=== PATIENT | male | born 1960 | race Caucasian/White ===

== ENCOUNTER 2019-11-21 14:09 | Emergency (ER) | payer OTHER, MEDICAID, SELFPAY ==
[2019-11-21] VITALS (7 sets, daily range): BP systolic 149–154; BP diastolic 67–100; PULSE 64–107; RESP 13–20; TEMP 36.9; O2SAT 99–100
[2019-11-21 14:37] LABS: Add Manual Diff / Slide Review NO; Basophils Absolute Auto 0 /uL (0-100); Basophils Percent Auto 0.5 % (0-2); Eosinophils Absolute Auto 0 /uL (0-450); Eosinophils Percent Auto 0.5 % (2-4); Hematocrit 42.3 % (41-53); Hemoglobin 14.4 g/dL (13.5-17.5); Lymphocytes Absolute Auto 1500 /uL (1100-4500); Lymphocytes Percent Auto 18.1 % (25-40); Mean Corpuscular Hemoglobin 30.4 PG (26-34); Mean Corpuscular Volume 89.5 fL (80-100); Monocytes Absolute Auto 600 /uL (0-900); Monocytes Percent Auto 7.4 % (3-14); Neutrophils Absolute Auto 6000 /uL (1500-7000); Neutrophils Percent Auto 73.5 % (50-75); Platelet Count 246 X10^3/uL (150-400); Red Blood Cell Count 4.72 X10^6/uL (4.5-5.9); Red Cell Distribution Width 13.9 % (11.6-14.8); White Blood Cell Count 8.2 X10^3/uL (4.5-11.0)
[2019-11-21 14:44] LABS: INR 0.9 (0.9-1.3); Prothrombin Time 10.6 SECONDS (10.1-12.7)
[2019-11-21 14:47] LABS: PTT Partial Thromboplastin Tim 30 SECONDS (26.4-36.2)
[2019-11-21 14:48] LABS: Alanine Aminotransferase 23 IU/L (<50); Albumin 4.3 g/dL (3.5-5.0); Albumin Globulin Ratio 1.3 (1.0-2.8); Alkaline Phosphatase 69 U/L (38-126); Aspartate Aminotransferase 27 IU/L (17-59); BUN Creatinine Ratio 23.5 (6-22); Bilirubin Total 0.6 mg/dL (0.2-1.3); Blood Urea Nitrogen 23 mg/dL (9-20); Calcium 9.6 mg/dL (8.4-10.2); Carbon Dioxide 29 mmol/L (22-32); Chloride 104 mmol/L (98-107); Estimated Glomerular Filt Rate > 60.0 mL/min (>60); Globulin 3.2 g/dL (1.7-4.1); Glucose 95 mg/dL (80-110); HEMOLYSIS < 15 (0-50); Lipase 96 U/L (23-300); Potassium 3.9 mmol/L (3.4-5.1); Sodium 139 mmol/L (137-145); Total Protein 7.5 g/dL (6.3-8.2)
[2019-11-21 14:54] LABS: Creatine Kinase 91 U/L (55-170)
[2019-11-21 15:07] LABS: Troponin I < 0.012 ng/mL (0.01-0.034)
--- NOTE | 2019-11-21 15:23 | DI.CT.S_ITS ---
PROCEDURE: CT ABDOMEN PELVIS W CON INDICATIONS: llq pain TECHNIQUE: After the administration of intravenous contrast, 5 mm thick sections acquired from the diaphragm to the symphysis. 5 mm coronal and sagittal reformats were acquired. For radiation dose reduction, the following was used: automated exposure control, adjustment of mA and/or kV according to patient size. COMPARISON: None. FINDINGS: Image quality: Excellent. ABDOMEN: Lung bases: Lung bases are clear. Heart size is normal. Solid organs: Liver is normal in size and enhancement. Gallbladder appears normal. Biliary system is non dilated. Pancreas enhances normally. Spleen is normal in size and enhancement. No adrenal nodules. Kidneys demonstrate normal size and enhancement, without hydronephrosis. Peritoneum and bowel: Bowel loops demonstrate normal wall thickness and caliber. No free fluid or air. Nodes and vessels: No retroperitoneal or mesenteric adenopathy by size criteria. Aorta and inferior vena cava are normal in size. Miscellaneous: No ventral hernias. PELVIS: Genitourinary: Bladder wall thickness is normal. Miscellaneous: No inguinal hernias or adenopathy. At the left inguinal canal internal os the morphology is suggestive of prior herniorrhaphy. Bones: No suspicious bony lesions. No vertebral body compression fractures. IMPRESSION: Please correlate clinically for whether prior herniorrhaphy has been performed at the internal os of the left inguinal canal. No diverticulitis is found, no free fluid is identified. A definite source of current new left lower quadrant pain is not identified. The clinical history indicates possible upper abdominal pain also. No acute disease in the upper abdomen is found. Dictated by: Westley Rincon M.D. on 11/21/2019 at 16:29 Approved by: Westley Rincon M.D. on 11/21/2019 at 16:31
--- NOTE | 2019-11-21 16:32 | ED.ABDPAIN ---
HPI - Abdominal Pain <NINA Sanchez-BC - Last Filed: 11/21/19 18:48> General Chief Complaint: Abdominal Pain Stated Complaint: feels like something is broke in stomach Time Seen by Provider: 11/21/19 14:13 Source: patient Mode of arrival: Ambulatory Limitations: no limitations History of Present Illness HPI narrative: The patient is a 59-year-old male current smoker with history rib fracture presents with a chief complaint of I think I broke something in my stomach.He states that he has a known left inguinal hernia but was driving a needle through a piece of tarp and felt a pop in his left lower abdomen. He denies any fevers nausea vomiting or diarrhea. He states that he had hernia that was hard earlier, but it got better after a felt a pop. He denies any pertinent medical history of abdominal surgeries or cardiac disease. He has not taken anything to feel better. This happened approximately 20 minutes prior to arrival. The patient states that he has had a left inguinal hernia for approximately 4 years, he states ?I was supposed to follow-up on it, but I did not. Related Data Home Medications Medication Instructions Recorded Confirmed [ALEVE] PRN #0 09/05/07 Bupropion Hydrochloride 300 mg PO Q DAY #0 05/18/10 (WELLBUTRIN) [AMBIEN] #0 05/19/10 Previous Rx's Medication Instructions Recorded ciprofloxacin HCl [Cipro] 500 mg PO BID #20 tab 10/16/15 hydrocodone-acetaminophen 0 tab PO Q6HP PRN #15 tab 10/16/15 oxycodone-acetaminophen [Percocet] 1 tab PO Q4HP PRN #15 tab 11/24/15 albuterol sulfate [Ventolin HFA] 0 puff INH Q4HP PRN #1 ea 04/24/16 doxycycline hyclate 100 mg PO BID #14 tab 04/24/16 Allergies Allergy/AdvReac Type Severity Reaction Status Date / Time No Known Drug Allergies Allergy Verified 11/21/19 14:13 Review of Systems <MAYRA Sanchez - Last Filed: 11/21/19 18:48> Review of Systems Narrative: GENERAL: Denies chills, fatigue, malaise, fever, sweats. HEENT: Denies sinus pain, ear pain, sore throat, difficulty swallowing, dizziness. RESPIRATORY: Denies dyspnea, cough, wheezing, hemoptysis, sputum. CARDIOVASCULAR: Denies chest pain, palpitations, orthopnea, edema, GASTROINTESTINAL: See HPI : Denies dysuria, frequency, incontinence, hematuria, urinary retention. MUSCULOSKELETAL: denies weakness, joint pain, or bony pain SKIN: Denies rash, skin lesions, or other NEUROLOGIC: Denies weakness, headache, numbness, change in speech, confusion, seizures, incoordination. PSYCHIATRIC: No concerning psychosocial issues. 12 point review of systems is negative except for those stated above Exam <NINA Sanchez-BC - Last Filed: 11/21/19 18:48> Narrative Exam Narrative: GENERAL: This is a well-nourished, well-developed patient, no acute distress HEAD: Atraumatic. Normocephalic. No temporal or scalp tenderness. EYES: Pupils equal round and reactive. Extraocular motions intact. No scleral icterus. No injection or drainage. ENT: Nose without bleeding, purulent drainage or septal hematoma. Throat without erythema, tonsillar hypertrophy or exudate. Uvula midline. Airway patent. NECK: Trachea midline. No JVD or lymphadenopathy. Supple, nontender, no meningeal signs. CARDIOVASCULAR: Regular rate and rhythm RESPIRATORY: Clear to auscultation. Breath sounds equal bilaterally. No wheezes, rales, or rhonchi. No cough. No increased respiratory effort. No accessory muscle use. GASTROINTESTINAL: Abdomen soft, non-tender, nondistended. No hepato-splenomegaly, or palpable masses. No guarding. Active bowel sounds all 4 quadrants. Left inguinal area soft palpation no obvious hernia,, exam with Carlie RN at bedside EXTREMITIES: No clubbing, cyanosis, or edema. No joint tenderness, effusion, or edema noted. BACK: Nontender without deformity or crepitance. No flank tenderness. NEURO: AOx3. SKIN: No rash or erythema on visible skin Initial Vital Signs Initial Vital Signs: Vital Signs Temperature 98.5 F 11/21/19 14:13 Pulse Rate 107 H 11/21/19 14:13 Respiratory Rate 18 11/21/19 14:13 Blood Pressure 149/100 H 11/21/19 14:13 Pulse Oximetry 100 11/21/19 14:13 <Tammy Murray DO - Last Filed: 11/26/19 07:24> Initial Vital Signs Initial Vital Signs: Vital Signs Temperature 98.5 F 11/21/19 14:13 Pulse Rate 107 H 11/21/19 14:13 Respiratory Rate 18 11/21/19 14:13 Blood Pressure 149/100 H 11/21/19 14:13 Pulse Oximetry 100 11/21/19 14:13 Scores <SYD Sanchez - Last Filed: 11/21/19 18:48> GCS [place] coma scale eye opening: Spontaneous Deshawn coma scale verbal response: Orientated [place] coma scale motor response: Obey commands Deshawn coma scale total score: 15 Course <SYD Sanchez - Last Filed: 11/21/19 18:48> Orders Ordered: ED Orders 11/21/19 14:30 Complete Blood Count AUTO DIFF Stat Comprehensive Metabolic Panel Stat Lipase Stat Partial Thromboplastin Time Stat Prothrombin Time INR Stat Troponin & CK Cardiac Panel Stat 11/21/19 14:32 EKG-12 Lead Stat 11/21/19 15:23 CT abdomen pelvis w con Stat Vital Signs Vital signs: Vital Signs - 8 hr 11/21/19 14:13 11/21/19 14:34 11/21/19 15:00 Temperature 98.5 F Pulse Rate 107 H 92 H 83 Respiratory Rate 18 14 Blood Pressure 149/100 H Pulse Oximetry 100 99 100 11/21/19 16:00 11/21/19 16:30 11/21/19 17:00 Temperature Pulse Rate 64 71 85 Respiratory Rate 14 20 18 Blood Pressure Pulse Oximetry 99 100 100 11/21/19 17:32 Temperature Pulse Rate 71 Respiratory Rate 13 Blood Pressure 150/97 H Pulse Oximetry 100 <Tammy Murray DO - Last Filed: 11/26/19 07:24> Orders Ordered: ED Orders 11/21/19 14:30 Complete Blood Count AUTO DIFF Stat Comprehensive Metabolic Panel Stat Lipase Stat Partial Thromboplastin Time Stat Prothrombin Time INR Stat Troponin & CK Cardiac Panel Stat 11/21/19 14:32 EKG-12 Lead Stat 11/21/19 15:23 CT abdomen pelvis w con Stat Vital Signs Vital signs: Vital Signs - 8 hr 11/21/19 14:13 11/21/19 14:34 11/21/19 15:00 Temperature 98.5 F Pulse Rate 107 H 92 H 83 Respiratory Rate 18 14 Blood Pressure 149/100 H Pulse Oximetry 100 99 100 11/21/19 16:00 11/21/19 16:30 11/21/19 17:00 Temperature Pulse Rate 64 71 85 Respiratory Rate 14 20 18 Blood Pressure Pulse Oximetry 99 100 100 11/21/19 17:32 Temperature Pulse Rate 71 Respiratory Rate 13 Blood Pressure 150/97 H Pulse Oximetry 100 MDM - Abdominal Pain <Miriam Whitfield, [employer]OR- - Last Filed: 11/21/19 18:48> Lab Data Result diagrams: 11/21/19 14:30 11/21/19 14:30 Labs: Lab Results 11/21/19 11/21/19 11/21/19 Range/Units 14:30 14:30 14:30 WBC 8.2 (4.5-11.0) X10^3/uL RBC 4.72 (4.5-5.9) X10^6/uL Hgb 14.4 (13.5-17.5) g/dL Hct 42.3 (41-53) % MCV 89.5 (80-100) fL MCH 30.4 (26-34) PG MCHC 34.0 (30-36) % RDW 13.9 (11.6-14.8) % Plt Count 246 (150-400) X10^3/uL Neut % (Auto) 73.5 (50-75) % Lymph % (Auto) 18.1 L (25-40) % Wilkinson % (Auto) 7.4 (3-14) % Eos % (Auto) 0.5 L (2-4) % Baso % (Auto) 0.5 (0-2) % Neut # (Auto) 6000 (4093-9747) /uL Lymph # (Auto) 1500 (0568-6465) /uL Wilkinson # (Auto) 600 (0-900) /uL Eos # (Auto) 0 (0-450) /uL Baso # (Auto) 0 (0-100) /uL PT 10.6 (10.1-12.7) SECONDS INR 0.9 (0.9-1.3) APTT 30 (26.4-36.2) SECONDS Sodium 139 (137-145) mmol/L Potassium 3.9 (3.4-5.1) mmol/L Chloride 104 (98-107) mmol/L Carbon Dioxide 29 (22-32) mmol/L BUN 23 H (9-20) mg/dL Creatinine 0.98 (0.66-1.25) mg/dL Estimated GFR > 60.0 (>60) mL/min BUN/Creatinine Ratio 23.5 H (6-22) Glucose 95 (80-110) mg/dL Calcium 9.6 (8.4-10.2) mg/dL Total Bilirubin 0.6 (0.2-1.3) mg/dL AST 27 (17-59) IU/L ALT 23 (<50) IU/L Alkaline Phosphatase 69 (38-126) U/L Total Creatine Kinase (55-170) U/L CK-MB (CK-2) CK-MB (CK-2) Rel Index Troponin I (0.01-0.034) ng/mL Total Protein 7.5 (6.3-8.2) g/dL Albumin 4.3 (3.5-5.0) g/dL Globulin 3.2 (1.7-4.1) g/dL Albumin/Globulin Ratio 1.3 (1.0-2.8) Lipase 96 (23-300) U/L 11/21/19 Range/Units 14:30 WBC (4.5-11.0) X10^3/uL RBC (4.5-5.9) X10^6/uL Hgb (13.5-17.5) g/dL Hct (41-53) % MCV (80-100) fL MCH (26-34) PG MCHC (30-36) % RDW (11.6-14.8) % Plt Count (150-400) X10^3/uL Neut % (Auto) (50-75) % Lymph % (Auto) (25-40) % Wilkinson % (Auto) (3-14) % Eos % (Auto) (2-4) % Baso % (Auto) (0-2) % Neut # (Auto) (9541-4130) /uL Lymph # (Auto) (8351-6670) /uL Wilkinson # (Auto) (0-900) /uL Eos # (Auto) (0-450) /uL Baso # (Auto) (0-100) /uL PT (10.1-12.7) SECONDS INR (0.9-1.3) APTT (26.4-36.2) SECONDS Sodium (137-145) mmol/L Potassium (3.4-5.1) mmol/L Chloride (98-107) mmol/L Carbon Dioxide (22-32) mmol/L BUN (9-20) mg/dL Creatinine (0.66-1.25) mg/dL Estimated GFR (>60) mL/min BUN/Creatinine Ratio (6-22) Glucose (80-110) mg/dL Calcium (8.4-10.2) mg/dL Total Bilirubin (0.2-1.3) mg/dL AST (17-59) IU/L ALT (<50) IU/L Alkaline Phosphatase (38-126) U/L Total Creatine Kinase 91 (55-170) U/L CK-MB (CK-2) TNP CK-MB (CK-2) Rel Index TNP Troponin I < 0.012 (0.01-0.034) ng/mL Total Protein (6.3-8.2) g/dL Albumin (3.5-5.0) g/dL Globulin (1.7-4.1) g/dL Albumin/Globulin Ratio (1.0-2.8) Lipase (23-300) U/L Point of care testing: Urine Dip Bedside Urine Glucose Negative Bedside Urine Bilirubin - Negative Bedside Urine Ketone - Negative Urine Specific [place] 1.010 Bedside Urine Occult Blood - Negative Bedside Urine pH 7.0 Bedside Urine Protein +/- 15 Bedside Urine Urobilinogen +/- 1mg Bedside Urine Nitrite - Negative Bedside Urine Leukocytes - Negative Esterase Imaging Data CT scan - abdomen/pelvis: Radiologist's Impression: [place] [address] CT Scan Report Signed Patient: Shahab Conley GMR#: [id number] : 9Acct:[id number] Age/Sex: 59 / MDate of Service: 11/21/19 Loc: ED Accession Number: [id number] Procedure: CT abdomen pelvis w con Ordering Provider: Miriam Whitfield [employer]- PROCEDURE: CT ABDOMEN PELVIS W CON INDICATIONS: llq pain TECHNIQUE: After the administration of intravenous contrast, 5 mm thick sections acquired from the diaphragm to the symphysis. 5 mm coronal and sagittal reformats were acquired. For radiation dose reduction, the following was used: automated exposure control, adjustment of mA and/or kV according to patient size. COMPARISON: None. FINDINGS: Image quality: Excellent. ABDOMEN: Lung bases: Lung bases are clear. Heart size is normal. Solid organs: Liver is normal in size and enhancement. Gallbladder appears normal. Biliary system is non dilated. Pancreas enhances normally. Spleen is normal in size and enhancement. No adrenal nodules. Kidneys demonstrate normal size and enhancement, without hydronephrosis. Peritoneum and bowel: Bowel loops demonstrate normal wall thickness and caliber. No free fluid or air. Nodes and vessels: No retroperitoneal or mesenteric adenopathy by size criteria. Aorta and inferior vena cava are normal in size. Miscellaneous: No ventral hernias. PELVIS: Genitourinary: Bladder wall thickness is normal. Miscellaneous: No inguinal hernias or adenopathy. At the left inguinal canal internal os the morphology is suggestive of prior herniorrhaphy. Bones: No suspicious bony lesions. No vertebral body compression fractures. IMPRESSION: Please correlate clinically for whether prior herniorrhaphy has been performed at the internal os of the left inguinal canal. No diverticulitis is found, no free fluid is identified. A definite source of current new left lower quadrant pain is not identified. The clinical history indicates possible upper abdominal pain also. No acute disease in the upper abdomen is found. Dictated by: Westley Rincon M.D. on 11/21/2019 at 16:29 Approved by: Westley Rnicon M.D. on 11/21/2019 at 16:31 ECG Data Attestation: I personally reviewed and interpreted this ECG as follows: Interpretation: Sinus rhythm. Ventricular 84. P.r. interval 152. QRS 90. Viewed by Dr. Terri MOYA Narrative Medical decision making narrative: The patient is a 59-year-old male who presents with a chief complaint of sudden onset popping sensation in his left lower quadrant in the area of his hernia. His lab work is grossly normal, negative troponin, denies any chest pain or shortness of breath. He is afebrile, hemodynamically stable throughout his stay in the emergency department. CT was taken to help evaluate for any potential incarceration, perforation, rupture etcetera came back negative. The patient feels much improved throughout his stay in the emergency department and denies any pain upon discharge. I discussed at length importance of following up with primary care provider in the next few days as well as coming back to the emergency department for any acute concerns such as inability keep down fluids etcetera. Patient has no questions or concerns upon discharge and states understanding of return precautions as well as follow-up care. <Tammy Murray, - Last Filed: 11/26/19 07:24> Lab Data Labs: Lab Results 11/21/19 11/21/19 11/21/19 Range/Units 14:30 14:30 14:30 WBC 8.2 (4.5-11.0) X10^3/uL RBC 4.72 (4.5-5.9) X10^6/uL Hgb 14.4 (13.5-17.5) g/dL Hct 42.3 (41-53) % MCV 89.5 (80-100) fL MCH 30.4 (26-34) PG MCHC 34.0 (30-36) % RDW 13.9 (11.6-14.8) % Plt Count 246 (150-400) X10^3/uL Neut % (Auto) 73.5 (50-75) % Lymph % (Auto) 18.1 L (25-40) % Wilkinson % (Auto) 7.4 (3-14) % Eos % (Auto) 0.5 L (2-4) % Baso % (Auto) 0.5 (0-2) % Neut # (Auto) 6000 (2418-0329) /uL Lymph # (Auto) 1500 (1674-6004) /uL Wilkinson # (Auto) 600 (0-900) /uL Eos # (Auto) 0 (0-450) /uL Baso # (Auto) 0 (0-100) /uL PT 10.6 (10.1-12.7) SECONDS INR 0.9 (0.9-1.3) APTT 30 (26.4-36.2) SECONDS Sodium 139 (137-145) mmol/L Potassium 3.9 (3.4-5.1) mmol/L Chloride 104 (98-107) mmol/L Carbon Dioxide 29 (22-32) mmol/L BUN 23 H (9-20) mg/dL Creatinine 0.98 (0.66-1.25) mg/dL Estimated GFR > 60.0 (>60) mL/min BUN/Creatinine Ratio 23.5 H (6-22) Glucose 95 (80-110) mg/dL Calcium 9.6 (8.4-10.2) mg/dL Total Bilirubin 0.6 (0.2-1.3) mg/dL AST 27 (17-59) IU/L ALT 23 (<50) IU/L Alkaline Phosphatase 69 (38-126) U/L Total Creatine Kinase (55-170) U/L CK-MB (CK-2) CK-MB (CK-2) Rel Index Troponin I (0.01-0.034) ng/mL Total Protein 7.5 (6.3-8.2) g/dL Albumin 4.3 (3.5-5.0) g/dL Globulin 3.2 (1.7-4.1) g/dL Albumin/Globulin Ratio 1.3 (1.0-2.8) Lipase 96 (23-300) U/L // Range/Units 14:30 WBC (4.5-11.0) X10^3/uL RBC (4.5-5.9) X10^6/uL Hgb (13.5-17.5) g/dL Hct (41-53) % MCV (80-100) fL MCH (26-34) PG MCHC (30-36) % RDW (11.6-14.8) % Plt Count (150-400) X10^3/uL Neut % (Auto) (50-75) % Lymph % (Auto) (25-40) % Wilkinson % (Auto) (3-14) % Eos % (Auto) (2-4) % Baso % (Auto) (0-2) % Neut # (Auto) (5442-7922) /uL Lymph # (Auto) (7546-9956) /uL Wilkinson # (Auto) (0-900) /uL Eos # (Auto) (0-450) /uL Baso # (Auto) (0-100) /uL PT (10.1-12.7) SECONDS INR (0.9-1.3) APTT (26.4-36.2) SECONDS Sodium (137-145) mmol/L Potassium (3.4-5.1) mmol/L Chloride (98-107) mmol/L Carbon Dioxide (22-32) mmol/L BUN (9-20) mg/dL Creatinine (0.66-1.25) mg/dL Estimated GFR (>60) mL/min BUN/Creatinine Ratio (6-22) Glucose (80-110) mg/dL Calcium (8.4-10.2) mg/dL Total Bilirubin (0.2-1.3) mg/dL AST (17-59) IU/L ALT (<50) IU/L Alkaline Phosphatase (38-126) U/L Total Creatine Kinase 91 (55-170) U/L CK-MB (CK-2) TNP CK-MB (CK-2) Rel Index TNP Troponin I < 0.012 (0.01-0.034) ng/mL Total Protein (6.3-8.2) g/dL Albumin (3.5-5.0) g/dL Globulin (1.7-4.1) g/dL Albumin/Globulin Ratio (1.0-2.8) Lipase (23-300) U/L Point of care testing: Urine Dip Bedside Urine Glucose Negative Bedside Urine Bilirubin - Negative Bedside Urine Ketone - Negative Urine Specific [place] 1.010 Bedside Urine Occult Blood - Negative Bedside Urine pH 7.0 Bedside Urine Protein +/- 15 Bedside Urine Urobilinogen +/- 1mg Bedside Urine Nitrite - Negative Bedside Urine Leukocytes - Negative Esterase Discharge Plan Departure Patient Disposition: Home Clinical Impression: Abdominal pain Qualifiers: Abdominal location: left lower quadrant Qualified Code(s): R10.32 - Left lower quadrant pain Inguinal hernia Qualifiers: Obstruction and gangrene presence: without obstruction or gangrene Laterality: unilateral Recurrence: not specified as recurrent Qualified Code(s): K40.90 - Unilateral inguinal hernia, without obstruction or gangrene, not specified as recurrent Discharge Date/Time: 11/21/19 17:40 Instructions: DI for Groin Hernia, DI for Abdominal Pain-Adult Activity Restrictions/Additional Instructions: Thank you for trusting us with your care today. As discussed, your lab work and imaging came back well with no acute findings. Please come back to the emergency department for any acute concerns such as severe sudden abdominal pain, abdominal pain with fever etcetera as well as inability keep down fluids Please follow-up with primary care provider in the next 24-48 hours. Please come back to the emergency department for any acute concerns. I suggest rest, ice packs [id number] medications as needed and able Prescriptions: No Action [ALEVE] PRN Qty: 0 RF: 0 Bupropion Hydrochloride (WELLBUTRIN) 300 mg PO Q DAY Qty: 0 RF: 0 [AMBIEN] Qty: 0 RF: 0 hydrocodone-acetaminophen 5 MG/325 MG tablet 0 tab PO Q6HP PRNQty: 15 RF: 0 ciprofloxacin HCl [Cipro] 500 MG tablet 500 mg PO BID Qty: 20 RF: 0 oxycodone-acetaminophen [Percocet] 5 MG/325 MG tablet 1 tab PO Q4HP PRNQty: 15 RF: 0 albuterol sulfate [Ventolin HFA] 90 MCG/PUFF HFA aerosol inhaler 0 puff INH Q4HP PRNQty: 1 RF: 0 doxycycline hyclate 100 MG tablet 100 mg PO BID Qty: 14 RF: 0 Referrals: Jose Conteh MD [Primary Care Provider] - <Tammy Murray DO - Last Filed: 11/26/19 07:24> Cosign ED Attending Cosjesusature Attestation: I was immediately available in the department for consultation. Documentation has been reviewed. I agree with assessment and plan.
== END 2019-11-21 17:40 | disposition home or self-care (01) ==
PROVIDERS: Emergency Medicine; Emergency Provider Nurse Practitioner Family; Family Provider Family Medicine; PCP Family Medicine
DX: R10.32 Left lower quadrant pain (principal); K40.90 Unilateral inguinal hernia, without obstruction or gangrene, not specified as recurrent
CPT/HCPCS: 36415; 74177; 80053; 81003; 82550; 83690; 84484; 85025; 85610; 85730; 93005; 99283; 99284; Q9967

== ENCOUNTER 2022-04-10 16:36 | Emergency (ER) | payer OTHER, MEDICAID, SELFPAY ==
[2022-04-10 17:14] VITALS: BP 138/102; PULSE 101; RESP 22; TEMP 36.9; O2SAT 97
--- NOTE | 2022-04-10 17:14 | DI.RAD.S_ITS ---
PROCEDURE: XR HAND LT MIN 3V INDICATIONS: nail in his hand TECHNIQUE: 3 views of the hand(s) acquired. COMPARISON: None. FINDINGS: Bones: No fractures or dislocations. Carpal bones are normally aligned. No suspicious bony lesions. Age-appropriate bony degenerative changes are seen. Soft tissues: There is a 3.7 cm nail fragment seen adjacent to the 4th metacarpophalangeal joint. Associated soft tissue gas can be seen. An additional metallic foreign body can be seen adjacent to the 1st metacarpophalangeal joint measuring 3-4 mm. IMPRESSION: Now fragment seen adjacent to the 4th metacarpophalangeal joint, with associated soft tissue gas. No definite bony involvement can be seen. Dictated by: Valentin Murray M.D. on 04/10/2022 at 16:41 Approved by: Valentin Murray M.D. on 04/10/2022 at 16:43
[2022-04-10] MEDS: TET,DIPH,PERTUSS(ACELL),VAC/PF 0.5 ML SYRINGE IM (17:41)
[2022-04-10] MEDS: KETOROLAC 30 MG/ML VIAL 15 MG IM (17:43)
[2022-04-10] MEDS: LIDOCAINE 2% INJ SDV 5ML 5 ML INJ (17:44)
--- NOTE | 2022-04-10 17:50 | PC.NURSE ---
Pt has ernesto nail in soft tissue of the palm of his hand, insertion and exit site on palm of hand.
[2022-04-10] MEDS: DOXYCYCLINE HYCLATE 100 MG TABLET PO (18:01)
[2022-04-10] MEDS: HYDROCODONE/ACET 5/325 TABLET 1 TAB PO (18:01)
[2022-04-10] MEDS: BACITRACIN OINT 0.9 GM PCKT 1 APPLIC TOP (18:02)
--- NOTE | 2022-04-10 18:22 | ED_ITS ---
HPI - Skin/Abscess/Foreign Bdy <Jennifer Melara, [facility] - Last Filed: 04/10/22 18:30> General Chief complaint: Skin/Abscess/Foreign Body Stated complaint: Nail through hand Time Seen by Provider: 04/10/22 17:31 Source: patient Mode of arrival: Family Vehicle Limitations: no limitations History of Present Illness HPI narrative: 61-year-old male presents to the emergency department with a broken nail in the palm of his left hand occurred just prior to arrival. He states that it was stuck in a piece of wood and pierced through his hand, he states that he had a drag the 2 x 4 with the nail through his hand to his truck to cut it off of the wood. He was unable to pull the nail through his skin so he came to have this done here. He does not know when his last tetanus vaccination was. He denies any allergies to medications, denies any sensation changes. Denies any known medical condition. Denies any other injuries. Related Data Home Medications Medication Instructions Recorded Confirmed [ALEVE] PRN ##0 09/05/07 Bupropion Hydrochloride 300 mg PO Q DAY ##0 05/18/10 (WELLBUTRIN) [AMBIEN] ##0 05/19/10 Previous Rx's Medication Instructions Recorded ciprofloxacin HCl 500 mg tablet 500 mg PO BID #20 tabs 10/16/15 (Cipro) hydrocodone 5 mg-acetaminophen 325 0 tab PO Q6HP PRN #15 tabs 10/16/15 mg tablet oxycodone-acetaminophen 5 mg-325 1 tab PO Q4HP PRN #15 tabs 11/24/15 mg tablet (Percocet) albuterol sulfate 90 mcg/actuation 0 puff INH Q4HP PRN #1 ea 04/24/16 aerosol inhaler (Ventolin HFA) doxycycline hyclate 100 mg tablet 100 mg PO BID #14 tabs 04/24/16 doxycycline hyclate 100 mg capsule 100 mg PO BID #10 caps 04/10/22 hydrocodone 5 mg-acetaminophen 325 1 tab PO BID PRN pain #10 tabs 04/10/22 mg tablet mupirocin 2 % topical ointment 1 applic topical DAILY #15 grams 04/10/22 Allergies Allergy/AdvReac Type Severity Reaction Status Date / Time No Known Drug Allergies Allergy Verified 04/10/22 17:21 Review of Systems <MADISON Washburn - Last Filed: 04/10/22 18:30> Review of Systems ROS Unobtainable: All systems reviewed & are unremarkable except as noted in HPI and below Patient History <MADISON Washburn - Last Filed: 04/10/22 18:30> Social History Smoking Status: Former smoker Smoking Status: Former smoker tobacco type: vaping alcohol intake frequency: 0-2 drinks per day Substance Use Type: does not use Exam <MADISON Washburn - Last Filed: 04/10/22 18:30> Narrative Exam Narrative: Reviewed vitals signs and nursing notes. General: cooperative, comfortable, in no acute distress, very dirty in appearance MSK: moves all extremities, neurovascularly intact, no weakness, normal tone, now going through the palmar aspect of his left hand between the palm pad of the 4th and 5th distal metacarpals. CSM intact to all fingers with brisk cap refill, wound was cleaned with Betadine, local anesthesia with 2% lidocaine, rested nail was removed with ease. Fully intact, this was copiously irrigated with normal saline, bleeding controlled with pressure, covered with bacitracin, a light wrap after patient scrubbed his hands with chlorhexidine. His hands were very soiled. Skin: brisk capillary refill, without pallor or erythema Neuro: normal speech and cognition, A&O x3, ambulatory, clear speech Psych: mental status is grossly normal, congruent mood, normal affect, pleasant and cooperative Initial Vital Signs Initial Vital Signs: Vital Signs Temperature 98.5 F 04/10/22 17:14 Pulse Rate 101 H 04/10/22 17:14 Respiratory Rate 04/10/22 17:14 Blood Pressure 138/102 H 04/10/22 17:14 Pulse Oximetry 97 04/10/22 17:14 Oxygen Delivery Method 04/10/22 17:14 <Suleiman Crawford DO - Last Filed: 04/11/22 07:58> Initial Vital Signs Initial Vital Signs: Vital Signs Temperature 98.5 F 04/10/22 17:14 Pulse Rate 101 H 04/10/22 17:14 Respiratory Rate 22 04/10/22 17:14 Blood Pressure 138/102 H 04/10/22 17:14 Pulse Oximetry 97 04/10/22 17:14 Oxygen Delivery Method 04/10/22 17:14 Course <MADISON Washburn - Last Filed: 04/10/22 18:30> Orders Ordered: Discontinued Medications Hydrocodone Bitart/Acetaminophen (Hydrocodone/Acet 5/325 Tablet) 1 tab PO NOW ONE Stop: 04/10/22 17:56 Last Admin: 04/10/22 18:01 Dose: 1 tab Documented By: AT Bacitracin (Bacitracin Oint 0.9 Gm Pckt) 1 applic TOP NOW ONE Stop: 04/10/22 17:56 Last Admin: 04/10/22 18:02 Dose: 1 applic Documented By: AT Diphtheria/Tetanus/Acell Pertussis (Tet,Diph,Pertuss(Acell),Vac/Pf 0.5 Ml Syringe) 0.5 ml IM .ONCE ONE Stop: 04/10/22 17:23 Last Admin: 04/10/22 17:41 Dose: 0.5 ml Documented By: AT Doxycycline Hyclate (Doxycycline Hyclate 100 Mg Tablet) 100 mg PO NOW ONE Stop: 04/10/22 17:56 Last Admin: 04/10/22 18:01 Dose: 100 mg Documented By: AT Ketorolac Tromethamine (Ketorolac 30 Mg/Ml Vial) 15 mg IM NOW ONE Stop: 04/10/22 17:32 Last Admin: 04/10/22 17:43 Dose: 15 mg Documented By: AT Lidocaine HCl (Lidocaine 2% Inj Sdv 5ml) 5 ml INJ INTRA-OP ONE Stop: 04/10/22 17:32 Last Admin: 04/10/22 17:44 Dose: 5 ml Documented By: AT Ondansetron HCl (Ondansetron 4 Mg Odt) 4 mg SL NOW ONE Stop: 04/10/22 17:32 Last Admin: 04/10/22 18:10 Dose: Not Given Documented By: CTS Oxycodone/Acetaminophen (Oxycodone/Acetaminophen 5/325 Tablet) 1 tab PO NOW ONE Stop: 04/10/22 17:32 Last Admin: 04/10/22 17:41 Dose: Not Given Documented By: AT Vital Signs Vital signs: Vital Signs - 8 hr 04/10/22 17:14 Temperature 98.5 F Pulse Rate 101 H Respiratory Rate 22 Blood Pressure 138/102 H Pulse Oximetry 97 Oxygen Delivery Method Room Air <Suleiman Crawford DO - Last Filed: 04/11/22 07:58> Orders Ordered: Discontinued Medications Hydrocodone Bitart/Acetaminophen (Hydrocodone/Acet 5/325 Tablet) 1 tab PO NOW ONE Stop: 04/10/22 17:56 Last Admin: 04/10/22 18:01 Dose: 1 tab Documented By: AT Bacitracin (Bacitracin Oint 0.9 Gm Pckt) 1 applic TOP NOW ONE Stop: 04/10/22 17:56 Last Admin: 04/10/22 18:02 Dose: 1 applic Documented By: AT Diphtheria/Tetanus/Acell Pertussis (Tet,Diph,Pertuss(Acell),Vac/Pf 0.5 Ml Syringe) 0.5 ml IM .ONCE ONE Stop: 04/10/22 17:23 Last Admin: 04/10/22 17:41 Dose: 0.5 ml Documented By: AT Doxycycline Hyclate (Doxycycline Hyclate 100 Mg Tablet) 100 mg PO NOW ONE Stop: 04/10/22 17:56 Last Admin: 04/10/22 18:01 Dose: 100 mg Documented By: AT Ketorolac Tromethamine (Ketorolac 30 Mg/Ml Vial) 15 mg IM NOW ONE Stop: 04/10/22 17:32 Last Admin: 04/10/22 17:43 Dose: 15 mg Documented By: AT Lidocaine HCl (Lidocaine 2% Inj Sdv 5ml) 5 ml INJ INTRA-OP ONE Stop: 04/10/22 17:32 Last Admin: 04/10/22 17:44 Dose: 5 ml Documented By: AT Ondansetron HCl (Ondansetron 4 Mg Odt) 4 mg SL NOW ONE Stop: 04/10/22 17:32 Last Admin: 04/10/22 18:10 Dose: Not Given Documented By: CTS Oxycodone/Acetaminophen (Oxycodone/Acetaminophen 5/325 Tablet) 1 tab PO NOW ONE Stop: 04/10/22 17:32 Last Admin: 04/10/22 17:41 Dose: Not Given Documented By: AT Vital Signs Vital signs: Vital Signs - 8 hr 04/10/22 17:14 Temperature 98.5 F Pulse Rate 101 H Respiratory Rate 22 Blood Pressure 138/102 H Pulse Oximetry 97 Oxygen Delivery Method Room Air MDM - Skin/Abscess/Foreign Bdy <Jennifer Melara [facility] - Last Filed: 04/10/22 18:30> Imaging Data Extremity x-ray #1: Radiologist's Impression: PROCEDURE:? XR HAND LT MIN 3V ? INDICATIONS:? nail in his hand ? TECHNIQUE:? 3 views of the hand(s) acquired.? ? COMPARISON:? None. ? FINDINGS:? ? Bones:? No fractures or dislocations.? Carpal bones are normally aligned.? No suspicious bony lesions.? Age-appropriate bony degenerative changes are seen.? ? Soft tissues:? There is a 3.7 cm nail fragment seen adjacent to the 4th metacarpophalangeal joint.? Associated soft tissue gas can be seen. ? An additional metallic foreign body can be seen adjacent to the 1st metacarpophalangeal joint measuring 3-4 mm. ? ? IMPRESSION:? Now fragment seen adjacent to the 4th metacarpophalangeal joint, with associated soft tissue gas. ? No definite bony involvement can be seen. ? ? Dictated by: Valentin Murray M.D. on 04/10/2022 at 16:41 ? ? Approved by: Valentin Murray M.D. on 04/10/2022 at 16:43 ? [facility] Narrative Medical decision making narrative: CC: Nail in hand 61-year-old male presents to the emergency department with a broken nail in the palm of his left hand occurred just prior to arrival. Differential diagnoses include, but are not limited to: Fracture, multiple fragments of foreign body, vascular injury, ligamental injury, tendon injury, I have reviewed the patient's vital signs and nursing notes as well as prior records if available. Lab test results independently reviewed, pertinent findings: My imaging interpretation: 1 foreign body associated with injured area of concern Re-evaluations/Ongoing course of care: Patient brought back to room, I met with him, discussed any risk factors, he denies history of allergy, cleaned his wound with Betadine, assessed for CSM without deficit, injected 2% lidocaine locally to anesthetize the soft tissue, nail was removed in 1 quick hole with pliers, copious irrigation was normal saline afterwards through wound, bleeding controlled, bacitracin applied, hand cleansing and absorbent nonocclusive dressing applied. Patient was given doxycycline for wound prophylaxis as he was very disheveled and dirty in appearance when he came in, foreign body was in his hand for quite some time with consideration of possible vascular injury. CSM remained intact following foreign body removal. No other soft tissue fore ign body or injury. Patient able to flex and extend his fingers without deficit, no tenderness over MCP joints. Patient's symptoms improved over duration of stay with above-stated therapies. Disposition: see below, along with detailed discharge instructions that have been reviewed with the patient as well as indications for ED re-evaluation and additional outpatient follow-up. Questions are addressed and there is agreement with the plan and for follow-up. Patient is appropriate for outpatient management. MIPS: This encounter doesn't have any diagnosis associated with MIPS criteria. I, MADISON Juan, personally performed the services described in the documentation, and it accurately records my words and actions. I collaborated with the ED attending physician for JOSE level 2, 3, and some level 4s as appropriate. Discharge Plan Departure Patient Disposition: Home Clinical Impression: Foreign body (FB) in soft tissue Instructions: DI for Puncture Wound Activity Restrictions/Additional Instructions: *You have been diagnosed with a ernesto nail going through this tissue of your hand, we pulled this out, you tolerated that quite well, sorry that this was painful. I hope that you do not have any infection from this, please use the topical antibiotic ointment, keep it covered with a hand wrap or Band-Aid to allow for drainage and prevent it from getting dirty. Please take the antibiotic twice a day for the next 5 days to help prevent infection. Your tetanus was updated today, if you develop worsening pain, tenderness along your hand in up your arm, or pus coming from your wound, please come back for another evaluation of this. Please keep your hands is clean as you can, thank you for coming in for assistance. *What to do: *Please continue to take your regular medications as directed. [x ] New medication prescriptions sent to your pharmacy: [ [facility]] [ ] New medication written as a paper prescription [ ] No new medications given *Please follow up with your primary care provider in 2-3 days, call for an appo intment. Let them know you were seen in the Emergency Department and that we asked that you be seen for follow-up. We will electronically transmit a record of today's note if your PCP is in our system *If you do not have a primary care provider please contact [phone] to establish care with one of the [facility] primary care providers. *Return to Emergency Department if you should have any new, worsening, or concerning symptoms, such as [fever greater than 101F, chills, worsening pain, persistent vomiting or other bothersome symptoms]. Prescriptions: New doxycycline hyclate 100 mg capsule 100 mg PO BID Qty: 10 0RF mupirocin 2 % ointment 1 applic topical DAILY Qty: 15 0RF hydrocodone-acetaminophen 5-325 mg tablet 1 tab PO BID PRN (Reason: pain) Qty: 10 0RF No Action [ALEVE] PRN Qty: 0 Bupropion Hydrochloride (WELLBUTRIN) 300 mg PO Q DAY Qty: 0 [AMBIEN] Qty: 0 hydrocodone-acetaminophen 5 MG/325 MG tablet 0 tab PO Q6HP PRNQty: 15 0RF ciprofloxacin HCl [Cipro] 500 MG tablet 500 mg PO BID Qty: 20 0RF oxycodone-acetaminophen [Percocet] 5 MG/325 MG tablet 1 tab PO Q4HP PRNQty: 15 0RF albuterol sulfate [Ventolin HFA] 90 MCG/PUFF HFA aerosol inhaler 0 puff INH Q4HP PRNQty: 1 0RF doxycycline hyclate 100 MG tablet 100 mg PO BID Qty: 14 0RF Referrals: Jose Conteh MD [Primary Care Provider] - Stand Alone Forms: Patient Portal/API <Suleiman Crawford DO - Last Filed: 04/11/22 07:58> [facility] ED Attending Lawanda Attestation: I was immediately available in the department for consultation. Documentation has been reviewed. I agree with assessment and plan.
== END 2022-04-10 18:04 | disposition home or self-care (01) ==
PROVIDERS: Emergency Provider Nurse Practitioner Critical Care Medicine; Family Provider Family Medicine; PCP Family Medicine
DX: M60.242 Foreign body granuloma of soft tissue, not elsewhere classified, left hand (principal); Z18.89 Other specified retained foreign body fragments; Z23 Encounter for immunization
CPT/HCPCS: 73130; 90471; 96372; 99283; 99284; 90715; J1885

== ENCOUNTER 2022-04-29 19:11 | Emergency (ER) | payer OTHER, MEDICAID, SELFPAY ==
[2022-04-29] VITALS (9 sets, daily range): BP systolic 128–151; BP diastolic 69–81; PULSE 50–77; RESP 14–19; TEMP 36.4–36.6; O2SAT 91–100
[2022-04-29 19:50] LABS: Add Manual Diff / Slide Review NO; Basophils Absolute Auto 100 /uL (0-100); Basophils Percent Auto 0.9 % (0-2); Eosinophils Absolute Auto 100 /uL (0-450); Eosinophils Percent Auto 1.1 % (2-4); Hemoglobin 13.9 g/dL (13.5-17.5); Lymphocytes Absolute Auto 2000 /uL (1100-4500); Lymphocytes Percent Auto 26.9 % (25-40); Mean Corpuscular HGB Conc 33.2 % (30-36); Mean Corpuscular Hemoglobin 29.5 PG (26-34); Mean Corpuscular Volume 88.7 fL (80-100); Monocytes Absolute Auto 800 /uL (0-900); Monocytes Percent Auto 10.5 % (3-14); Neutrophils Absolute Auto 4400 /uL (1500-7000); Neutrophils Percent Auto 60.6 % (50-75); Platelet Count 247 X10^3/uL (150-400); Red Blood Cell Count 4.73 X10^6/uL (4.5-5.9); Red Cell Distribution Width 13.8 % (11.6-14.8); White Blood Cell Count 7.3 X10^3/uL (4.5-11.0)
[2022-04-29 20:01] LABS: Alanine Aminotransferase 29 IU/L (<50); Albumin 4.1 g/dL (3.5-5.0); Albumin Globulin Ratio 1.3 (1.0-2.8); Alkaline Phosphatase 65 U/L (38-126); Aspartate Aminotransferase 31 IU/L (17-59); BUN Creatinine Ratio 28.6 (6-22); Bilirubin Total 0.5 mg/dL (0.2-1.3); Blood Urea Nitrogen 28 mg/dL (9-20); Calcium 9.4 mg/dL (8.4-10.2); Carbon Dioxide 29 mmol/L (22-32); Chloride 101 mmol/L (98-107); Estimated Glomerular Filt Rate > 60 mL/min (>60); Globulin 3.2 g/dL (1.7-4.1); Glucose 105 mg/dL (80-110); HEMOLYSIS 29 (0-50); Lipase 169 U/L (23-300); Potassium 3.9 mmol/L (3.4-5.1); Sodium 139 mmol/L (137-145); Total Protein 7.3 g/dL (6.3-8.2)
[2022-04-29] MEDS: ONDANSETRON 4 MG/2 ML INJ IV (20:01)
[2022-04-29] MEDS: HYDROMORPHONE 1 MG INJ IV (20:01)
[2022-04-29] MEDS: LORazepam 2 MG/ML INJ 0.5 MG IV (20:02)
[2022-04-29] MEDS: SODIUM CHLORIDE 0.9% 1,000 ML 1000 ML IV (20:07)
--- NOTE | 2022-04-29 21:07 | ED.GENADULT ---
HPI - General Adult General Chief complaint: Abdominal Pain Stated complaint: Hernia Time Seen by Provider: 04/29/22 19:45 Source: patient Mode of arrival: Wheelchair History of Present Illness HPI narrative: 61-year-old gentleman who tends to avoid medical care (self-described) with history of a known inguinal hernia presents with severe left inguinal pain accompanied by sister. Reports that he was walking up and down some stairs and experienced severe left inguinal pain. He did try to reduce the hernia but was unable to do so. He is in extreme pain on arrival so much so that exam is difficult and history is challenging to obtain initially. Related Data Home Medications Medication Instructions Recorded Confirmed [ALEVE] PRN ##0 09/05/07 Bupropion Hydrochloride 300 mg PO Q DAY ##0 05/18/10 (WELLBUTRIN) [AMBIEN] ##0 05/19/10 Previous Rx's Medication Instructions Recorded ciprofloxacin HCl 500 mg tablet 500 mg PO BID #20 tabs 10/16/15 (Cipro) hydrocodone 5 mg-acetaminophen 325 0 tab PO Q6HP PRN #15 tabs 10/16/15 mg tablet oxycodone-acetaminophen 5 mg-325 1 tab PO Q4HP PRN #15 tabs 11/23/16 mg tablet (Percocet) albuterol sulfate 90 mcg/actuation 0 puff INH Q4HP PRN #1 ea 04/24/16 aerosol inhaler (Ventolin HFA) doxycycline hyclate 100 mg tablet 100 mg PO BID #14 tabs 04/24/16 doxycycline hyclate 100 mg capsule 100 mg PO BID #10 caps 04/10/22 hydrocodone 5 mg-acetaminophen 325 1 tab PO BID PRN pain #10 tabs 04/10/22 mg tablet mupirocin 2 % topical ointment 1 applic topical DAILY #15 grams 04/10/22 Allergies Allergy/AdvReac Type Severity Reaction Status Date / Time No Known Drug Allergies Allergy Verified 04/10/22 17:21 Review of Systems Review of Systems ROS Unobtainable: Unobtainable due to medical condition Patient History Social History Smoking Status: Former smoker Smoking Status: Former smoker tobacco type: vaping alcohol intake frequency: 0-2 drinks per day Substance Use Type: does not use Exam Initial Vital Signs Initial Vital Signs: Vital Signs Temperature 97.9 F 04/29/22 19:16 Pulse Rate 77 04/29/22 19:16 Respiratory Rate 19 04/29/22 19:16 Blood Pressure 128/74 04/29/22 19:16 Pulse Oximetry 100 04/29/22 19:16 Oxygen Delivery Method 04/29/22 19:16 General: Healthy appearing, in severe pain. Unable to cooperate with history or physical. Well-nourished well-developed HEENT: Moist mucous membranes, normal sclera with reactive pupils, Respiratory: Lungs are clear to auscultation, no wheezing no rales no rhonchi. Full and symmetrical air movement Cardiac: Regular rate and rhythm no murmurs no bruits Abdomen: Soft, nontender, good bowel tones, no flank pain Groin: Palpable left inguinal hernia, not able to be reduced. Skin: Warm and dry, no rashes Neurologic: Grossly neurologically intact with no obvious asymmetries or abnormalities Extremities: No trauma, well perfused Psych: Cooperative, appropriate insight and affect Course Orders Ordered: Discontinued Medications Hydromorphone HCl (Hydromorphone 1 Mg Inj) 1 mg IV NOW ONE Stop: 04/29/22 19:51 Last Admin: 04/29/22 20:01 Dose: 1 mg Documented By: PRAVIN Sodium Chloride (Normal Saline 0.9%) 1,000 mls @ 1,000 mls/hr IV BOLUS ONE Stop: 04/29/22 20:49 Last Infusion: 04/29/22 21:17 Dose: 0 mls/hr Documented By: Admin: 04/29/22 20:07 Dose: 1,000 mls/hr Documented By: PRAVIN Lorazepam (Lorazepam 2 Mg/Ml Inj) 0.5 mg IV NOW ONE Stop: 04/29/22 19:51 Last Admin: 04/29/22 20:02 Dose: 0.5 mg Documented By: PRAVIN Ondansetron HCl (Ondansetron 4 Mg Odt) 4 mg PO NOW PRN PRN Reason: Nausea And Vomiting Ondansetron HCl (Ondansetron 4 Mg/2 Ml Inj) 4 mg IV NOW PRN PRN Reason: Nausea And Vomiting Last Admin: 04/29/22 20:01 Dose: 4 mg Documented By: PRAVIN Vital Signs Vital signs: Vital Signs - 8 hr 04/29/22 19:16 04/29/22 19:57 04/29/22 20:00 Temperature 97.9 F Pulse Rate 77 65 Respiratory Rate 19 Blood Pressure 128/74 137/69 Pulse Oximetry 100 Oxygen Delivery Method Room Air 04/29/22 20:00 04/29/22 20:30 Temperature Pulse Rate 50 L 63 Respiratory Rate Blood Pressure Pulse Oximetry 91 100 Oxygen Delivery Method Medical Decision Making Lab Data 04/29/22 19:40 04/29/22 19:40 Labs: Lab Results 04/29/22 04/29/22 Range/Units 19:40 19:40 WBC 7.3 (4.5-11.0) X10^3/uL RBC 4.73 (4.5-5.9) X10^6/uL Hgb 13.9 (13.5-17.5) g/dL Hct 42.0 (41-53) % MCV 88.7 (80-100) fL MCH 29.5 (26-34) PG MCHC 33.2 (30-36) % RDW 13.8 (11.6-14.8) % Plt Count 247 (150-400) X10^3/uL Neut % (Auto) 60.6 (50-75) % Lymph % (Auto) 26.9 (25-40) % [place] % (Auto) 10.5 (3-14) % Eos % (Auto) 1.1 L (2-4) % Baso % (Auto) 0.9 (0-2) % Neut # (Auto) 4400 (7877-2570) /uL Lymph # (Auto) 2000 (3704-2804) /uL [place] # (Auto) 800 (0-900) /uL Eos # (Auto) 100 (0-450) /uL Baso # (Auto) 100 (0-100) /uL Sodium 139 (137-145) mmol/L Potassium 3.9 (3.4-5.1) mmol/L Chloride 101 (98-107) mmol/L Carbon Dioxide 29 (22-32) mmol/L BUN 28 H (9-20) mg/dL Creatinine 0.98 (0.66-1.25) mg/dL Estimated GFR > 60 (>60) mL/min BUN/Creatinine Ratio 28.6 H (6-22) Glucose 105 (80-110) mg/dL Calcium 9.4 (8.4-10.2) mg/dL Total Bilirubin 0.5 (0.2-1.3) mg/dL AST 31 (17-59) IU/L ALT 29 (<50) IU/L Alkaline Phosphatase 65 (38-126) U/L Total Protein 7.3 (6.3-8.2) g/dL Albumin 4.1 (3.5-5.0) g/dL Globulin 3.2 (1.7-4.1) g/dL Albumin/Globulin Ratio 1.3 (1.0-2.8) Lipase 169 (23-300) U/L MDM Narrative Medical decision making narrative: CC: Left inguinal hernia pain acute and severe, new presentation uncertain diagnosis potential life-threatening morbidity and mortality Complicating co-morbidities: Smoker, avoids medical care Corroborating data: Data collected from: patient, sister Social determinants of health that may influence the patients condition: No primary care provider Differential considered: Incarcerated inguinal hernia, bowel obstruction, bowel , surgical abdomen, kidney stone, sepsis Exam documented above, pertinent findings include: Pain is absolutely located to moderate size left inguinal hernia that is full, firm, tender to the touch but not erythematous or warm Lab Test results independently reviewed as above. Pertinent findings: CBC is unremarkable Chemistries are unremarkable Treatments: Patient is given of mg of Dilaudid and half a mg of Ativan IV for pain control and anxiety relief. After pain had been adequately controlled with gentle pressure and manipulation that inguinal hernia was able to be easily reduced. Re-evaluations: 9pm Patient is more awake after medications have worn off. Pain is adequately controlled at this point Discussion: Discussed presence of an inguinal hernia that did need parenteral narcotics and benzodiazepines for reduction in the emergency department this evening. Strongly recommended they follow-up with [facility] for outpatient consideration of inguinal hernia repair. Discussed findings that would necessitate return to the emergency department including recurrence the intractable hernia, blood in his stool, inability to have a bowel movement or pass gas. Patient is safe for discharge home Disposition: see below, along with detailed discharge instructions that have been reviewed with patient as well as indications for ED re-evaluation and additional outpatient follow up Discharge Plan Departure Patient Disposition: Home Clinical Impression: Incarcerated inguinal hernia, unilateral Instructions: DI for Groin Hernia Activity Restrictions/Additional Instructions: Thank you for coming in today You do have an inguinal hernia on the left and some of your bowel had worked its way out and was stuck. This does hurt tremendously. In the emergency department with adequate IV pain and anxiety medications I was able to gently influence the hernia back inside. At this point, you are safe for discharge home. At hernia will continue to be a problem. You do need to follow-up with [facility]. You can contact their office at [phone] to schedule an appointment with 1 of the general surgeons to discuss repair of your left inguinal hernia. This frequently can be an outpatient procedure and only takes a few hours. I suspect that the area will be tender, using 400 mg of ibuprofen (2 [id number] pills) and 1 Tylenol every 6 hours can be very helpful in controlling pain. I would encourage you to take quite a bit of care in lifting objects heavier than 10 lb to avoid exacerbating the pain and causing the bowel to poke back out again If you find that it has recurred and you are again having the same level of pain you absolutely need to return to the emergency department. Similarly, if you are noticing that your unable to have a bowel movement or passed gas or noticed blood in your stools you need to return to the emergency department for further evaluation Prescriptions: No Action [ALEVE] PRN Qty: 0 Bupropion Hydrochloride (WELLBUTRIN) 300 mg PO Q DAY Qty: 0 [AMBIEN] Qty: 0 hydrocodone-acetaminophen 5 MG/325 MG tablet 0 tab PO Q6HP PRNQty: 15 0RF ciprofloxacin HCl [Cipro] 500 MG tablet 500 mg PO BID Qty: 20 0RF oxycodone-acetaminophen [Percocet] 5 MG/325 MG tablet 1 tab PO Q4HP PRNQty: 15 0RF albuterol sulfate [Ventolin HFA] 90 MCG/PUFF HFA aerosol inhaler 0 puff INH Q4HP PRNQty: 1 0RF doxycycline hyclate 100 MG tablet 100 mg PO BID Qty: 14 0RF doxycycline hyclate 100 mg capsule 100 mg PO BID Qty: 10 0RF mupirocin 2 % ointment 1 applic topical DAILY Qty: 15 0RF hydrocodone-acetaminophen 5-325 mg tablet 1 tab PO BID PRN (Reason: pain) Qty: 10 0RF Referrals: Jose Conteh MD [Primary Care Provider] - Stand Alone Forms: Patient Portal/API
== END 2022-04-29 23:04 | disposition home or self-care (01) ==
PROVIDERS: Emergency Provider Emergency Medicine; Family Provider Family Medicine; PCP Family Medicine
DX: K40.30 Unilateral inguinal hernia, with obstruction, without gangrene, not specified as recurrent (principal)
CPT/HCPCS: 36415; 80053; 83690; 85025; 96361; 96374; 96375; 99284; J1170; J2060; J2405

== ENCOUNTER 2024-06-13 07:41 | Inpatient (IN) | payer SELFPAY ==
[2024-06-13] VITALS (28 sets, daily range): BP systolic 109–135; BP diastolic 69–97; PULSE 51–100; RESP 14–25; TEMP 35.7–36.5; O2SAT 86–100
--- NOTE | 2024-06-13 07:52 | EKG_ITS ---
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
--- NOTE | 2024-06-13 07:58 | ED_ITS ---
HPI - General Adult General Chief complaint: Shortness of Breath/Dyspnea Stated complaint: SOB Time Seen by Provider: 06/13/24 07:54 History of Present Illness HPI narrative: 63-year-old male with no history of chronic heart or lung problems known, no history smoking, prior albuterol inhaler prescription, no chronic hypoxia, has one-week duration of cough that was initially dry, but last 3 days productive, did not see his sputum, does not taste like blood, swallows the sputum. Denies history of heart failure, swelling of the legs. Denies history of blood clots to legs or lungs, denies pain or swelling to legs. No known exposure to persons with recent upper respiratory infection cough symptoms. He has had seasonal flu shot, has had COVID vaccination including booster late last year. Related Data Home Medications Medication Instructions Recorded Confirmed No Known Home Medications 06/13/24 06/13/24 Allergies Allergy/AdvReac Type Severity Reaction Status Date / Time No Known Drug Allergies Allergy Verified 04/10/22 17:21 Patient History Social History household members: none Smoking Status: Never smoker alcohol intake: former Smoking Status: Former smoker tobacco type: vaping alcohol intake frequency: 0-2 drinks per day Exam Narrative Exam Narrative: GENERAL: Well-developed patient, in mild distress. HEAD: Atraumatic. Normocephalic. EYES: Pupils equal round and reactive. Extraocular motions intact. No scleral icterus. No injection or drainage. ENT: Nose without bleeding, purulent drainage. Throat without erythema, tonsillar hypertrophy or exudate. Airway patent. NECK: Trachea midline. Non tender CARDIOVASCULAR: Regular rate and rhythm without murmurs, gallops, or rubs. RESPIRATORY: Clear to auscultation. Breath sounds equal bilaterally. No wheezes, rales, or rhonchi. Speaks in full sentences, 86-90% room air triage sat noted, improved on mask GASTROINTESTINAL: Abdomen soft, non-tender, nondistended. EXTREMITIES: No edema or joint tenderness. BACK: Nontender without deformity or crepitance. No flank tenderness. NEURO: AOx3. Motor functions grossly nonfocal SKIN: No rash or erythema of visible areas Initial Vital Signs Initial Vital Signs: Vital Signs Temperature 97.7 F 06/13/24 07:57 Pulse Rate 84 06/13/24 07:57 Respiratory Rate 20 06/13/24 07:57 Blood Pressure 123/82 06/13/24 07:57 Pulse Oximetry 86 L 06/13/24 07:57 Oxygen Delivery Method Room Air 06/13/24 07:57 Course Orders Ordered: ED Orders 06/13/24 07:55 Complete Blood Count AUTO DIFF Stat Comprehensive Metabolic Panel Stat Covid-19 + FLU A/B + RSV - PCR Stat Lipase Stat Troponin & CK Cardiac Panel Stat 06/13/24 08:10 XR chest 1V Stat EKG-12 Lead Stat 06/13/24 08:48 CT angio chest PE protocol Stat 06/13/24 09:52 EKG-12 Lead Stat 06/13/24 10:05 BNP [NT-proBNP (BNP-Adult 18+)] Stat Troponin I Stat 06/13/24 10:23 Blood Culture Stat 06/13/24 10:58 Lactate (Lactic Acid) Stat Acetaminophen (Acetaminophen 325 Mg Tablet) 650 mg PO Q6H PRN PRN Reason: Fever/Mild Pain (1-3) Aspirin (Aspirin Ec 81 Mg Tablet) 81 mg PO DAILY [facility] Enoxaparin Sodium (Enoxaparin 40 Mg/0.4 Ml Syringe) 40 mg SUBCUT DAILY [facility] Last Admin: 06/13/24 14:36 Dose: 40 mg Documented By: SHY Furosemide (Furosemide 40 Mg/4 Ml Vial) 40 mg IV Q12HR [facility] Losartan Potassium (Losartan 25 Mg Tablet) 25 mg PO DAILY [facility] Magnesium Hydroxide (Magnesium Hydroxide 30 Ml Udc) 30 ml PO DAILY PRN PRN Reason: Constipation Metoprolol Tartrate (Metoprolol Ir 25 Mg Tablet) 25 mg PO BID [facility] Naloxone HCl (Naloxone 0.4 Mg/Ml Vial) 0.2 mg IV Q2MIN PRN PRN Reason: Opiate Reversal Potassium Chloride (Potassium Chloride 20 Meq Tab) 20 meq PO BIDWM [facility] Sennosides (Sennosides 8.6 Mg Tablet) 17.2 mg PO BEDTIME [facility] Discontinued Medications Albuterol/Ipratropium (Albuterol/Ipratropium 3 Ml Ampul) 3 ml INH NOW ONE Stop: 06/13/24 08:12 Last Admin: 06/13/24 08:38 Dose: 3 ml Documented By: SAT Furosemide (Furosemide 40 Mg/4 Ml Vial) 40 mg IV NOW ONE Stop: 06/13/24 11:26 Last Admin: 06/13/24 12:59 Dose: 40 mg Documented By: MARQUIS Vital Signs Vital signs: Vital Signs - 8 hr 06/13/24 07:57 06/13/24 08:02 06/13/24 08:03 Temperature 97.7 F Pulse Rate 84 85 Respiratory Rate 20 17 Blood Pressure 123/82 110/76 Pulse Oximetry 86 L 88 L Oxygen Delivery Method Room Air Oxygen Flow Rate 06/13/24 08:03 06/13/24 08:15 06/13/24 08:15 Temperature Pulse Rate 78 91 H Respiratory Rate 24 24 Blood Pressure 126/89 Pulse Oximetry 90 L 96 Oxygen Delivery Method Oxygen Flow Rate 06/13/24 08:30 06/13/24 08:30 06/13/24 08:38 Temperature Pulse Rate 93 H 91 H Respiratory Rate 16 20 Blood Pressure 121/84 Pulse Oximetry 98 96 Oxygen Delivery Method Oximask Oxygen Flow Rate 2 06/13/24 08:45 06/13/24 08:45 06/13/24 09:05 Temperature Pulse Rate 86 51 L Respiratory Rate 21 Blood Pressure 115/69 Pulse Oximetry 96 100 Oxygen Delivery Method Oxygen Flow Rate 06/13/24 09:30 06/13/24 10:01 06/13/24 10:02 Temperature Pulse Rate 94 H 93 H Respiratory Rate 17 Blood Pressure 125/86 Pulse Oximetry 97 95 Oxygen Delivery Method Oxygen Flow Rate 06/13/24 10:02 06/13/24 10:15 06/13/24 10:15 Temperature Pulse Rate 92 H 95 H Respiratory Rate 20 22 Blood Pressure 126/84 Pulse Oximetry 96 92 Oxygen Delivery Method Oximask Oxygen Flow Rate 2 06/13/24 10:30 06/13/24 10:40 06/13/24 10:40 Temperature Pulse Rate 92 H 91 H Respiratory Rate 20 17 Blood Pressure 128/83 Pulse Oximetry 99 99 Oxygen Delivery Method Oxygen Flow Rate 06/13/24 10:44 06/13/24 10:45 06/13/24 10:45 Temperature Pulse Rate 100 H 92 H Respiratory Rate 25 H Blood Pressure 132/92 H Pulse Oximetry 87 L 96 Oxygen Delivery Method Oximask Oxygen Flow Rate 2 06/13/24 11:00 06/13/24 11:00 06/13/24 11:15 Temperature Pulse Rate 95 H Respiratory Rate 18 Blood Pressure 133/94 H 135/90 Pulse Oximetry 98 Oxygen Delivery Method Oxygen Flow Rate 06/13/24 11:15 Temperature Pulse Rate 93 H Respiratory Rate 20 Blood Pressure Pulse Oximetry 96 Oxygen Delivery Method Oxygen Flow Rate Medical Decision Making Lab Data Lab results reviewed: Yes I reviewed the patient's lab results. Lab results narrative: White blood cell count 6500, hemoglobin 13.9, platelets adequate. BUN 29 with creatinine 1.23 normal renal function. Glucose 104. Serum CO2 26. Potassium 5.0, sodium 138. Mild transaminitis, normal total bilirubin and alkaline phosphatase. Lipase normal. COVID flu RSV negative. BNP pending. 06/13/24 07:55 06/13/24 07:55 Labs: Lab Results 06/13/24 06/13/24 06/13/24 Range/Units 07:55 10:05 10:58 WBC 6.5 (4.5-11.0) X10^3/uL RBC 4.63 (4.5-5.9) X10^6/uL Hgb 13.9 (13.5-17.5) g/dL Hct 41.9 (41-53) % MCV 90.5 (80-100) fL MCH 29.9 (26-34) PG MCHC 33.1 (30-36) % RDW 14.6 (11.6-14.8) % Plt Count 191 (150-400) X10^3/uL Neut % (Auto) 63.6 (50-75) % Lymph % (Auto) 24.2 L (25-40) % [place] % (Auto) 10.1 (3-14) % Eos % (Auto) 1.5 L (2-4) % Baso % (Auto) 0.6 (0-2) % Neut # (Auto) 4100 (3587-0004) /uL Lymph # (Auto) 1600 (2300-6653) /uL [place] # (Auto) 700 (0-900) /uL Eos # (Auto) 100 (0-450) /uL Baso # (Auto) 0 (0-100) /uL Sodium 138 (137-145) mmol/L Potassium 5.0 (3.4-5.1) mmol/L Chloride 106 (98-107) mmol/L Carbon Dioxide 26 (22-32) mmol/L BUN 29 H (9-20) mg/dL Creatinine 1.23 (0.66-1.25) mg/dL Estimated GFR > 60 (>60) mL/min BUN/Creatinine Ratio 23.6 H (6-22) Glucose 104 (80-110) mg/dL Lactate 1.1 (0.7-2.1) mmol/L Calcium 9.3 (8.4-10.2) mg/dL Total Bilirubin 0.8 (0.2-1.3) mg/dL AST 83 H (17-59) IU/L ALT 101 H (<50) IU/L Alkaline Phosphatase 92 (38-126) U/L Total Creatine Kinase 92 (55-170) U/L Troponin I 0.085 H 0.080 H (0.01-0.034) ng/mL NT-Pro-B Natriuret Pep 47374 H (<125) pg/mL Total Protein 6.6 (6.3-8.2) g/dL Albumin 3.9 (3.5-5.0) g/dL Globulin 2.7 (1.7-4.1) g/dL Albumin/Globulin Ratio 1.4 (1.0-2.8) Lipase 156 (23-300) U/L SARS-CoV-2 (PCR) Negative (Negative) Influenza A (RT-PCR) Flu a negative (NEGATIVE) Influenza B (RT-PCR) Flu b negative (NEGATIVE) RSV (PCR) Negative (Negative) Imaging Data CTA chest PE protocol: Radiologist's Impression: [place] [address] CT Scan Report Signed Patient: Shahab Conley MR#: [id number] : 1960 Acct:[id number] Age/Sex: 63 / M Date of Service: 06/13/24 Loc: ED Accession Number: [id number] Procedure: CT angio chest PE protocol Ordering Provider: Umer Hernandez MD PROCEDURE: CT ANGIO CHEST PE PROTOCOL INDICATIONS: new hypoxia, mild elev trop, eval PE TECHNIQUE: After the administration of intravenous contrast, 2 mm thick sections acquired from the pulmonary apices to the posterior costophrenic angles. 3-dimensional maximum intensity projection (MIP) coronal and sagittal reformats were then acquired through the thorax. For radiation dose reduction, the following was used: automated exposure control, adjustment of mA and/or kV according to patient size. COMPARISON: None. FINDINGS: Image quality: Diagnostic. Pulmonary arteries: Pulmonary arteries are normal in size, and demonstrate no intraluminal filling defects to suggest central pulmonary embolism. Lower Neck: No enlarged lymph nodes. Thyroid: No thyroid nodules which require sonographic follow up, per consensus guidelines. Axillae: No enlarged lymph nodes. Subcentimeter lymph nodes are seen in bilateral axilla measures up to 8 mm in short axis diameter in left axilla. Chest Wall: Unremarkable. Bones: No aggressive appearing bony lesions. No acute vertebral body compression fracture. Lungs and Pleura: Small bilateral pleural effusion is seen. Dependent atelectasis in posterior aspect of bilateral lung hsu are seen. No pneumothorax. No suspicious pulmonary nodules. Hazy ground-glass opacity in posterior aspect of bilateral lower lobes concerning for mild pulmonary edema versus pneumonitis. Heart: Heart size is enlarged. No pericardial effusion. Thoracic Vessels: No aortic aneurysm. Mediastinum and Dari: No enlarged lymph nodes. Esophagus: No wall thickening. No hiatal hernia. Upper Abdomen: Visualized upper abdomen solid organs and bowel loops appear normal. IMPRESSION: 1. No pulmonary embolus. No thoracic aortic aneurysm. Cardiomegaly, no pericardial effusion. 2. Small bilateral pleural effusion and dependent atelectasis in posterior aspect of bilateral lung hsu. Hazy ground-glass opacities seen in bilateral lower lobes suggestive of mild pulmonary edema versus pneumonitis. No pneumothorax. 3. No mediastinal or hilar lymphadenopathy by size criteria. Dictated by: Federico Coto M.D. on 06/13/2024 at 9:17 Approved by: Federico Coto M.D. on 06/13/2024 at 9:23 ECG Data Attestation: I personally reviewed and interpreted this ECG as follows: Interpretation: 0752, normal sinus rhythm with rate of 78, LV hypertrophy with QRS widening and Re pole abnormality. HI 146, QRS 118, QTC 460. Similar to comparison 11/21/2019. 1002, normal sinus rhythm with rate 93, LV hypertrophy with QRS widening and Re pole abnormality again seen, no significant change from prior study this visit. HI 146, QRS 118, QTC 460. MDM Narrative Medical decision making narrative: 63-year-old male with no known chronic heart or lung problems, one-week duration cough recently productive for the last 3 days, some pleuritic discomfort. No history of known PE. No wheezing or crackles on examination, hypoxia noted, given supplemental oxygen with improvement in sats. Trial of nebulized DuoNeb. Labs pending including BNP, troponin, lactate, COVID/flu swab. Chest x-ray canceled due to CTA chest ordered. Screening EKG with LVH pattern, similar to 11/21/2019 study. COVID flu RSV negative. CT angiogram chest PE protocol. Impressions: ?No pulmonary embolus. No thoracic aortic aneurysm. Cardiomegaly, no pericardial effusion. Small bilateral pleural effusions and dependent atelectasis in posterior aspect of the bilateral lung hsu. Hazy ground-glass opacities seen in bilateral lower lobes suggestive of mild pulmonary edema versus pneumonitis. No pneumothorax. No mediastinal or hilar lymphadenopathy by size criteria.? See radiology report. No definite pulmonary embolism, no gross fluid overload changes, BNP still pending. Repeat troponin/EKG to be performed. We will cover for pneumonia given new hypoxia, possible pneumonitis. Blood cultures. IV ceftriaxone, oral doxycycline. Initial troponin 0.085 indeterminate range. Interval repeat troponin 0.80 not rising. Repeat EKG today unchanged. 100% room air on 2 L, 92% room air, ambulation trial desaturated 87%, at rest recovered 92-94%. Consider admission, we will contact hospitalist. 1100, case discussed with hospitalist Dr. Barbosa who accepts patient for admission BNP 65297 elevated, IV Lasix, alerted hospitalist, admit as planned Critical Care Time Critical Care Time Critical Care Time: Yes Total Critical Care Time: 35 Attestation: The high probability of a clinically significant, sudden or life threatening deterioration of the [cardiopulmonary] system(s) required my full and direct attention, intervention and personal management. The aggregate critical care time was [35] minutes. This time is in addition to time spent performing reported procedures but includes the following: [x] Data Review and interpretation [x] Patient assessment and monitoring of vital signs [x] Documentation [x] Medication orders and management Discharge Plan Departure Patient Disposition: Admitted as Observation Clinical Impression: Acute hypoxic respiratory failure, Pneumonia, Pulmonary edema Admit Date/Time: 06/13/24 11:28 Admit Provider: Westley Barbosa
--- NOTE | 2024-06-13 08:10 | DI.RAD.S_ITS ---
PROCEDURE: XR CHEST 1V INDICATIONS: chest pain TECHNIQUE: One view of the chest was acquired. COMPARISON: [facility], , CHEST 2 VIEW, 04/24/2016, 14:11. FINDINGS: Surgical changes and devices: None. Lungs and pleura: There is pulmonary vascular congestion. No definite focal infiltrate. No pleural effusions or pneumothorax. Mediastinum: Mediastinal contours appear normal. Heart size is enlarged. Bones and chest wall: No suspicious bony lesions. Overlying soft tissues appear unremarkable. IMPRESSION: Cardiomegaly and mild congestion. No definite focal infiltrate. No pleural effusion or pneumothorax. Dictated by: Federico Coto M.D. on 06/13/2024 at 9:32 Approved by: Federico Coto M.D. on 06/13/2024 at 9:32
[2024-06-13 08:19] LABS: Add Manual Diff / Slide Review NO; Basophils Absolute Auto 0 /uL (0-100); Basophils Percent Auto 0.6 % (0-2); Eosinophils Absolute Auto 100 /uL (0-450); Eosinophils Percent Auto 1.5 % (2-4); Hematocrit 41.9 % (41-53); Hemoglobin 13.9 g/dL (13.5-17.5); Lymphocytes Absolute Auto 1600 /uL (1100-4500); Lymphocytes Percent Auto 24.2 % (25-40); Mean Corpuscular HGB Conc 33.1 % (30-36); Mean Corpuscular Hemoglobin 29.9 PG (26-34); Mean Corpuscular Volume 90.5 fL (80-100); Monocytes Absolute Auto 700 /uL (0-900); Monocytes Percent Auto 10.1 % (3-14); Neutrophils Absolute Auto 4100 /uL (1500-7000); Neutrophils Percent Auto 63.6 % (50-75); Platelet Count 191 X10^3/uL (150-400); Red Blood Cell Count 4.63 X10^6/uL (4.5-5.9); Red Cell Distribution Width 14.6 % (11.6-14.8); White Blood Cell Count 6.5 X10^3/uL (4.5-11.0)
[2024-06-13 08:29] LABS: Alanine Aminotransferase 101 IU/L (<50); Albumin 3.9 g/dL (3.5-5.0); Albumin Globulin Ratio 1.4 (1.0-2.8); Alkaline Phosphatase 92 U/L (38-126); Aspartate Aminotransferase 83 IU/L (17-59); BUN Creatinine Ratio 23.6 (6-22); Bilirubin Total 0.8 mg/dL (0.2-1.3); Blood Urea Nitrogen 29 mg/dL (9-20); Calcium 9.3 mg/dL (8.4-10.2); Carbon Dioxide 26 mmol/L (22-32); Chloride 106 mmol/L (98-107); Creatine Kinase 92 U/L (55-170); Estimated Glomerular Filt Rate > 60 mL/min (>60); Globulin 2.7 g/dL (1.7-4.1); Glucose 104 mg/dL (80-110); HEMOLYSIS 23 (0-50); Lipase 156 U/L (23-300); Sodium 138 mmol/L (137-145); Total Protein 6.6 g/dL (6.3-8.2)
[2024-06-13] MEDS: ALBUTEROL/IPRATROPIUM 3 ML AMPUL INH (08:38)
[2024-06-13 08:41] LABS: Troponin I 0.085 ng/mL (0.01-0.034)
--- NOTE | 2024-06-13 08:48 | DI.CT.S_ITS ---
PROCEDURE: CT ANGIO CHEST PE PROTOCOL INDICATIONS: new hypoxia, mild elev trop, eval PE TECHNIQUE: After the administration of intravenous contrast, 2 mm thick sections acquired from the pulmonary apices to the posterior costophrenic angles. 3-dimensional maximum intensity projection (MIP) coronal and sagittal reformats were then acquired through the thorax. For radiation dose reduction, the following was used: automated exposure control, adjustment of mA and/or kV according to patient size. COMPARISON: None. FINDINGS: Image quality: Diagnostic. Pulmonary arteries: Pulmonary arteries are normal in size, and demonstrate no intraluminal filling defects to suggest central pulmonary embolism. Lower Neck: No enlarged lymph nodes. Thyroid: No thyroid nodules which require sonographic follow up, per consensus guidelines. Axillae: No enlarged lymph nodes. Subcentimeter lymph nodes are seen in bilateral axilla measures up to 8 mm in short axis diameter in left axilla. Chest Wall: Unremarkable. Bones: No aggressive appearing bony lesions. No acute vertebral body compression fracture. Lungs and Pleura: Small bilateral pleural effusion is seen. Dependent atelectasis in posterior aspect of bilateral lung hsu are seen. No pneumothorax. No suspicious pulmonary nodules. Hazy ground-glass opacity in posterior aspect of bilateral lower lobes concerning for mild pulmonary edema versus pneumonitis. Heart: Heart size is enlarged. No pericardial effusion. Thoracic Vessels: No aortic aneurysm. Mediastinum and Dari: No enlarged lymph nodes. Esophagus: No wall thickening. No hiatal hernia. Upper Abdomen: Visualized upper abdomen solid organs and bowel loops appear normal. IMPRESSION: 1. No pulmonary embolus. No thoracic aortic aneurysm. Cardiomegaly, no pericardial effusion. 2. Small bilateral pleural effusion and dependent atelectasis in posterior aspect of bilateral lung hsu. Hazy ground-glass opacities seen in bilateral lower lobes suggestive of mild pulmonary edema versus pneumonitis. No pneumothorax. 3. No mediastinal or hilar lymphadenopathy by size criteria. Dictated by: Federico Coto M.D. on 06/13/2024 at 9:17 Approved by: Federico Coto M.D. on 06/13/2024 at 9:23
[2024-06-13 08:53] LABS: Influenza A - CEPHEID Flu A NEGATIVE (NEGATIVE); Influenza B - CEPHEID Flu B NEGATIVE (NEGATIVE); Respiratory Syncytial Virus Negative (Negative)
[2024-06-13 08:59] LABS: COVID-19 CEPHEID 4-PLEX PCR Negative (Negative)
--- NOTE | 2024-06-13 10:02 | EKG_ITS ---
[place] [address] [place] [id number] Test Date: 2024-06-13 Pat Name: Shahab Conley Department: [facility] Room: Gender: Male Validation Consultant: ANNE : 1960 Requested By: Order Number: [id number] Reading MD: Fredy Singh MD Measurements Intervals Moran Rate: 93 P: 76 MA: 154 QRS: -50 QRSD: 122 T: 118 QT: 378 QTc: 469 Interpretive Statements Normal sinus rhythm Left axis deviation Left ventricular hypertrophy with QRS widening and repolarization abnormality ( R in aVL , Sokolow-Dowd , Toni product , Romhilt-Barry ) NO SIGNIFICANT CHANGE FROM PRIOR TRACING Electronically Signed On 06-13-2024 16:40:48 PDT by Fredy Singh MD
--- NOTE | 2024-06-13 10:45 | PC.NURSE ---
walking O2 sat 87% not on O2, resting O2 sat 97% not on O2. RN and aware.
[2024-06-13 11:16] LABS: NT-proBNP (BNP-Adult 18+) 13200 pg/mL (<125)
[2024-06-13 11:21] LABS: Lactate (Lactic Acid) 1.1 mmol/L (0.7-2.1)
--- NOTE | 2024-06-13 12:12 | P.HP_ITS ---
History of Present Illness History of Present Illness Date Patient Seen: 06/13/24 Time Patient Seen: 12:12 Chief complaint: Dyspnea hypoxic respiratory failure CHF Narrative: Chief complaint: Shortness of breath and dyspnea setting of acute hypoxic respiratory failure and new onset congestive heart failure History of present illness: 63-year-old male with no history of chronic heart or lung problems known, no history smoking, prior albuterol inhaler prescription, no chronic hypoxia, has one-week duration of cough that was initially dry, but last 3 days productive, did not see his sputum, does not taste like blood, swallows the sputum. Denies history of heart failure, swelling of the legs. Denies history of blood clots to legs or lungs, denies pain or swelling to legs. No known exposure to persons with recent upper respiratory infection cough symptoms. He has had seasonal flu shot, has had COVID vaccination including booster late last year. Findings in the emergency department significant for patient with dyspnea and hypoxia with minimal exertion desaturated to 80% Diminished breath sounds at lung bases Very impressive Cardiomegaly and ground-glass parenchymal lung changes on CT angio of the chest suggestive of pulmonary edema and [place] [address]. Patient received a dose of Lasix in the emergency department and was referred for admission. 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 No tobacco or alcohol use Physical exam: Elderly male but appearing quite muscular and fit lean HEENT with some poor dentition no signs of acute abscess in the jaw no cervical adenopathy Neck no thyromegaly no thyroid nodules no carotid bruits no JVD Heart sounds distant almost imperceptible Lung sounds distant faint bibasilar rales Abdomen no hepatomegaly no shifting dullness bowel sounds present scaphoid Lower extremities no edema Upper extremity heavily callused fingers and palms of the hands not quite manic and like but obviously 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 No pulmonary embolus. No thoracic aortic aneurysm. Cardiomegaly, no pericardial effusion. 2. Small bilateral pleural effusion and dependent atelectasis in posterior aspect of bilateral lung hsu. Hazy ground-glass opacities seen in bilateral lower lobes suggestive of mild pulmonary edema versus pneumonitis. No pneumothorax. 3. No mediastinal or hilar lymphadenopathy by size criteria. Assessment and plan: Acute hypoxic respiratory failure with dyspnea in the setting of findings of [place] [address] -highly suspicious of cardiomyopathy with acute congestive heart failure -we will get echocardiogram -diuretics losartan low-dose aspirin and beta-[place] for now -consider connective tissue disease -consider connective tissue disease or pneumoconiosis DVT prophylaxis: Patient is at low risk Full Code Blue [facility] Social History household members: none Smoking Status: Never smoker alcohol intake: former Meds Home Medications and Allergies Home Medications Medication Instructions Recorded Confirmed Type No Known Home Medications 06/13/24 06/13/24 History Allergies Allergy/AdvReac Type Severity Reaction Status Date / Time No Known Drug Allergies Allergy Verified 04/10/22 17:21 Exam Vital Signs (past 8 hours): - 06/13/24 07:57 06/13/24 08:02 06/13/24 08:03 Temperature 97.7 F Pulse Rate 84 85 Respiratory Rate 20 17 Blood Pressure 123/82 110/76 Pulse Oximetry 86 L 88 L Oxygen Delivery Method Room Air Oxygen Flow Rate 06/13/24 08:03 06/13/24 08:15 06/13/24 08:15 Temperature Pulse Rate 78 91 H Respiratory Rate 24 24 Blood Pressure 126/89 Pulse Oximetry 90 L 96 Oxygen Delivery Method Oxygen Flow Rate 06/13/24 08:30 06/13/24 08:30 06/13/24 08:38 Temperature Pulse Rate 93 H 91 H Respiratory Rate 16 20 Blood Pressure 121/84 Pulse Oximetry 98 96 Oxygen Delivery Method Oximask Oxygen Flow Rate 2 06/13/24 08:45 06/13/24 08:45 06/13/24 09:05 Temperature Pulse Rate 86 51 L Respiratory Rate 21 Blood Pressure 115/69 Pulse Oximetry 96 100 Oxygen Delivery Method Oxygen Flow Rate 06/13/24 09:30 06/13/24 10:01 06/13/24 10:02 Temperature Pulse Rate 94 H 93 H Respiratory Rate 17 Blood Pressure 125/86 Pulse Oximetry 97 95 Oxygen Delivery Method Oxygen Flow Rate 06/13/24 10:02 06/13/24 10:15 06/13/24 10:15 Temperature Pulse Rate 92 H 95 H Respiratory Rate 20 22 Blood Pressure 126/84 Pulse Oximetry 96 92 Oxygen Delivery Method Oximask Oxygen Flow Rate 2 06/13/24 10:30 06/13/24 10:40 06/13/24 10:40 Temperature Pulse Rate 92 H 91 H Respiratory Rate 20 17 Blood Pressure 128/83 Pulse Oximetry 99 99 Oxygen Delivery Method Oxygen Flow Rate 06/13/24 10:44 06/13/24 10:45 06/13/24 10:45 Temperature Pulse Rate 100 H 92 H Respiratory Rate 25 H Blood Pressure 132/92 H Pulse Oximetry 87 L 96 Oxygen Delivery Method Oximask Oxygen Flow Rate 2 06/13/24 11:00 06/13/24 11:00 06/13/24 11:15 Temperature Pulse Rate 95 H Respiratory Rate 18 Blood Pressure 133/94 H 135/90 Pulse Oximetry 98 Oxygen Delivery Method Oxygen Flow Rate 06/13/24 11:15 Temperature Pulse Rate 93 H Respiratory Rate 20 Blood Pressure Pulse Oximetry 96 Oxygen Delivery Method Oxygen Flow Rate Oxygen Delivery Method Oximask Oxygen Flow Rate 2 Objective Labs 06/13/24 07:55 06/13/24 07:55 Labs: Laboratory Results - last 24 hr 06/13/24 06/13/24 06/13/24 07:55 10:05 10:58 WBC 6.5 RBC 4.63 Hgb 13.9 Hct 41.9 MCV 90.5 MCH 29.9 MCHC 33.1 RDW 14.6 Plt Count 191 Neut % (Auto) 63.6 Lymph % (Auto) 24.2 L Shannon % (Auto) 10.1 Eos % (Auto) 1.5 L Baso % (Auto) 0.6 Neut # (Auto) 4100 Lymph # (Auto) 1600 Shannon # (Auto) 700 Eos # (Auto) 100 Baso # (Auto) 0 Sodium 138 Potassium 5.0 Chloride 106 Carbon Dioxide 26 BUN 29 H Creatinine 1.23 Estimated GFR > 60 BUN/Creatinine Ratio 23.6 H Glucose 104 Lactate 1.1 Calcium 9.3 Total Bilirubin 0.8 AST 83 H ALT 101 H Alkaline Phosphatase 92 Total Creatine Kinase 92 Troponin I 0.085 H 0.080 H NT-Pro-B Natriuret Pep 94177 H Total Protein 6.6 Albumin 3.9 Globulin 2.7 Albumin/Globulin Ratio 1.4 Lipase 156 SARS-CoV-2 (PCR) Negative Influenza A (RT-PCR) Flu a negative Influenza B (RT-PCR) Flu b negative RSV (PCR) Negative Assessment & Plan Time-Based Coding :: 75 minutes spent with patient and on the chart (including review of chart, obtaining history, exam, reviewing outside data, placing orders, documenting exam and treatment plan, and counseling patient) 06/13/24
--- NOTE | 2024-06-13 12:50 | DI.ECHO.S_ITS ---
[facility] : : [address] : : [place] : : [id number] : : Phone: [phone] Echocardiogram Report + + :Name: IMMANUEL GARZA Study Date: 06/13/2024 Height: 70 in : :[facility] ReadingLocation: Weight: 140 lb : : Gender: Male BSA: 1.8 m2 : :: 1960 Age: 63 yrs BP: 134/95 mmHg: :Reason For Study: CONGESTIVE HEART FAILURE : :Ordering Physician: GONZALO : :BRE Performed By: Zee Simeon : :Referring: BRE SÁNCHEZ : + + Interpretation Summary Normal sinus rhythm with wide QRS complexes. Severely dilated left ventricle with normal wall thickness. Severe cardiomyopathy. Ejection fraction is 10-15%. EPSS is 2.2 cm consistent with severe cardiomyopathy. Mild right ventricular enlargement and moderately reduced RV systolic function. Severe LA enlargement and moderate RA enlargement. Moderate central tricuspid regurgitation and mild-moderate central mitral regurgitation. Estimated PA systolic pressure is 43 mmHg assuming right atrial pressure of 3 mmHg. No significant valvular abnormalities. No prior echo available for comparison. Procedure: A two-dimensional transthoracic echocardiogram with color flow and Doppler was performed. The study quality was technically good. There is no prior echocardiogram noted for this patient. The heart rate ranged between 72- 93 bpm during the study. Left Ventricle: The left ventricle is severely dilated. The estimated left ventricular end diastolic volume is 250 ml. Left ventricular volume indexed to BSA of 139ml/m2. There is normal left ventricular wall thickness. The ejection fraction is estimated to be 10-15%. There is severe global hypokinesis of the left ventricle. Diastolic parameters suggest a pseudonormalization pattern, consistent with probable elevated filling pressures. Right Ventricle: The right ventricle is mildly dilated. Right ventricular systolic function is moderately reduced. Atria: The left atrium is severely dilated. The right atrium is mild to moderately dilated. There is no Doppler evidence for an interatrial shunt. Mitral Valve: The mitral valve leaflets appear mildly thickened, but open well. There is no mitral annular calcification. There is no mitral valve stenosis. There is moderate mitral regurgitation. Aortic Valve: The aortic valve is trileaflet. The aortic valve is slightly calcified. The aortic valve opens well. There is no aortic valve stenosis. There is trace aortic regurgitation. Tricuspid Valve: The tricuspid valve leaflets are thickened and/or calcified, but open well. There is moderate tricuspid regurgitation. The right ventricular systolic pressure is estimated to be at least 43 mmHg based on an estimated right atrial pressure of 3 mm Hg. Pulmonic Valve: The pulmonic valve leaflets are thin and pliable; valve motion is normal. There is mild to moderate pulmonic regurgitation. Great Vessels: The aortic root is normal size. The dimensions of the ascending aorta are normal. The IVC is of normal diameter and collapses greater than 50% with a sniff. This suggests a low right atrial pressure of 3 mm Hg. Pericardium/ Pleura There is a trivial pericardial effusion noted. There is no pleural effusion. MMode/2D Measurements & Calculations LVIDd: 6.3 cm LVOT diam: 2.1 cm LVIDs: 6.1 cm Ao root diam: 3.4 cm FS: 3.9 % asc Aorta Diam: 3.3 cm EPSS: 2.3 cm IVSd: 0.90 cm LVPWd: 0.94 cm LV hudson. diameter/BSA (cm/m^2): 3.5 LV sys. diameter/BSA (cm/m^2): 3.4 LA A2 area: 25.2 cm2 RA long axis: 4.9 cm LA A4 area: 23.3 cm2 RA area: 20.5 cm2 LA length (vol): 5.8 cm RA vol: 72.4 ml LA vol: 86.2 ml RA : 40.4 ml/m2 LA vol index: 48.1 ml/m2 IVC diam: 1.1 cm RVD1 (basal): 4.9 cm RVD2 (mid): 4.0 cm TAPSE: 1.1 cm Doppler Measurements & Calculations Ao V2 max: 105.8 cm/sec LVOT Max [place]: 63.5 cm/sec Ao V2 mean: 74.8 cm/sec LV V1 max P.6 mmHg Ao max P.5 mmHg LV V1 VTI: 8.8 cm Ao mean P.5 mmHg OLIVA(I,D): 1.9 cm2 Ao V2 VTI: 16.4 cm OLIVA(V,D): 2.2 cm2 sev ratio: 0.54 OLIVA indexed to BSA (cm^2/m^2): 1.1 MV E max dakota: 79.7 cm/sec TR max dakota: 318.8 cm/sec MV A max dakota: 63.3 cm/sec TR max P.7 mmHg MV E/A: 1.3 PA V2 max: 68.3 cm/sec Med Peak E' [place]: 2.3 cm/sec PA V2 mean: 44.7 cm/sec E/E' med: 35.3 PA mean P.92 mmHg Lat Peak E' [place]: 3.4 cm/sec PA pr(Accel): 48.2 mmHg E/E' lat: 23.5 E/e' average: 29.4 MV dec time: 0.14 sec MVA(VTI): 2.0 cm2 MR ERO: 0.20 cm2 MV V2 mean: 57.7 cm/sec MR PISA: 2.4 cm2 MV mean P.5 mmHg MR flow rate: 89.0 cm3/sec MV V2 VTI: 16.3 cm MR PISA radius: 0.62 cm SV(LVOT): 31.9 ml Electronically signed by: Liliana Anna M.D. on Reading Physician:06/13/2024 04:52 PM
[2024-06-13] MEDS: FUROSEMIDE 40 MG/4 ML VIAL IV (12:59)
[2024-06-13] MEDS: ENOXAPARIN 40 MG/0.4 ML SYRINGE SUBCUT (14:36)
[2024-06-13 15:10] LABS: Cholesterol 186 mg/dL (140-199); HDL Cholesterol 49 mg/dL (40-60); LDL Cholesterol Calculated 118 mg/dL (<100); Triglycerides 97 mg/dL (35-150)
[2024-06-13] MEDS: POTASSIUM CHLORIDE 20 MEQ TAB PO (17:49)
--- NOTE | 2024-06-13 17:50 | P.DS_ITS ---
History of Present Illness History of Present Illness Date Patient Seen: 06/13/24 Chief complaint: Dyspnea hypoxic respiratory failure CHF Narrative: Date of admission 06/13/2024: Date of discharge 06/13/2024: Discharge diagnoses: Severe dilated cardiomyopathy with acute systolic congestive heart failure Chief complaint: Shortness of breath and dyspnea setting of acute hypoxic respiratory failure and new onset congestive heart failure History of present illness: 63-year-old male with no history of chronic heart or lung problems known, no history smoking, prior albuterol inhaler prescription, no chronic hypoxia, has one-week duration of cough that was initially dry, but last 3 days productive, did not see his sputum, does not taste like blood, swallows the sputum. Denies history of heart failure, swelling of the legs. Denies history of blood clots to legs or lungs, denies pain or swelling to legs. No known exposure to persons with recent upper respiratory infection cough symptoms. He has had seasonal flu shot, has had COVID vaccination including booster late last year. Findings in the emergency department significant for patient with dyspnea and hypoxia with minimal exertion desaturated to 80% Diminished breath sounds at lung bases Very impressive Cardiomegaly and ground-glass parenchymal lung changes on CT angio of the chest suggestive of pulmonary edema and [place] [address]. Patient received a dose of Lasix in the emergency department and was referred for admission. Received a call from Dr. Liliana Anna remote operations producer at [facility] telephone [phone] Echocardiogram shows acute severe cardiomyopathy with severe dilation EF of 10- 15%. Dr. Anna recommended step flight transfer to [facility] where patient could undergo a left and right heart catheterization. 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 No tobacco or alcohol use Physical exam: Elderly male but appearing quite muscular and fit lean HEENT with some poor dentition no signs of acute abscess in the jaw no cervical adenopathy Neck no thyromegaly no thyroid nodules no carotid bruits no JVD Heart sounds distant almost imperceptible Lung sounds distant faint bibasilar rales Abdomen no hepatomegaly no shifting dullness bowel sounds present scaphoid Lower extremities no edema Upper extremity heavily callused fingers and palms of the hands not quite manic and like but obviously 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 No pulmonary embolus. No thoracic aortic aneurysm. Cardiomegaly, no pericardial effusion. 2. Small bilateral pleural effusion and dependent atelectasis in posterior aspect of bilateral lung hsu. Hazy ground-glass opacities seen in bilateral lower lobes suggestive of mild pulmonary edema versus pneumonitis. No pneumothorax. 3. No mediastinal or hilar lymphadenopathy by size criteria. Assessment and plan: Acute hypoxic respiratory failure with dyspnea in the setting of findings of marked [place]ome[place] [address] Emergent flight transfer to [facility] for left and right cardiac catheterization and possible LVAD per recommendation by Dr. Liliana Anna DVT prophylaxis: Patient is at low risk Full Code Blue Below is a copy and paste of the echocardiogram report: Interpretation Summary Normal sinus rhythm with wide QRS complexes. Severely dilated left ventricle with normal wall thickness. Severe cardiomyopathy. Ejection fraction is 10-15%. EPSS is 2.2 cm consistent with severe cardiomyopathy. Mild right ventricular enlargement and moderately reduced RV systolic function. Severe LA enlargement and moderate RA enlargement. Moderate central tricuspid regurgitation and mild-moderate central mitral regurgitation. Estimated PA systolic pressure is 43 mmHg assuming right atrial pressure of 3 mmHg. No significant valvular abnormalities. No prior echo available for comparison. Procedure: A two-dimensional transthoracic echocardiogram with color flow and Doppler was performed. The study quality was technically good. There is no prior echocardiogram noted for this patient. The heart rate ranged between 72- 93 bpm during the study. Left Ventricle: The left ventricle is severely dilated. The estimated left ventricular end diastolic volume is 250 ml. Left ventricular volume indexed to BSA of 139ml/m2. There is normal left ventricular wall thickness. The ejection fraction is estimated to be 10-15%. There is severe global hypokinesis of the left ventricle. Diastolic parameters suggest a pseudonormalization pattern, consistent with probable elevated filling pressures. Right Ventricle: The right ventricle is mildly dilated. Right ventricular systolic function is moderately reduced. Atria: The left atrium is severely dilated. The right atrium is mild to moderately dilated. There is no Doppler evidence for an interatrial shunt. Mitral Valve: The mitral valve leaflets appear mildly thickened, but open well. There is no mitral annular calcification. There is no mitral valve stenosis. There is moderate mitral regurgitation. Aortic Valve: The aortic valve is trileaflet. The aortic valve is slightly calcified. The aortic valve opens well. There is no aortic valve stenosis. There is trace aortic regurgitation. Tricuspid Valve: The tricuspid valve leaflets are thickened and/or calcified, but open well. There is moderate tricuspid regurgitation. The right ventricular systolic pressure is estimated to be at least 43 mmHg based on an estimated right atrial pressure of 3 mm Hg. Pulmonic Valve: The pulmonic valve leaflets are thin and pliable; valve motion is normal. There is mild to moderate pulmonic regurgitation. Great Vessels: The aortic root is normal size. The dimensions of the ascending aorta are normal. The IVC is of normal diameter and collapses greater than 50% with a sniff. This suggests a low right atrial pressure of 3 mm Hg. Pericardium/ Pleura There is a trivial pericardial effusion noted. There is no pleural effusion. MMode/2D Measurements & Calculations LVIDd: 6.3 cm LVOT diam: 2.1 cm LVIDs: 6.1 cm Ao root diam: 3.4 cm FS: 3.9 % asc Aorta Diam: 3.3 cm EPSS: 2.3 cm IVSd: 0.90 cm LVPWd: 0.94 cm LV hudson. diameter/BSA (cm/m^2): 3.5 LV sys. diameter/BSA (cm/m^2): 3.4 LA A2 area: 25.2 cm2 RA long axis: 4.9 cm LA A4 area: 23.3 cm2 RA area: 20.5 cm2 LA length (vol): 5.8 cm RA vol: 72.4 ml LA vol: 86.2 ml RA : 40.4 ml/m2 LA vol index: 48.1 ml/m2 IVC diam: 1.1 cm RVD1 (basal): 4.9 cm RVD2 (mid): 4.0 cm TAPSE: 1.1 cm Doppler Measurements & Calculations Ao V2 max: 105.8 cm/sec LVOT Max [place]: 63.5 cm/sec Ao V2 mean: 74.8 cm/sec LV V1 max P.6 mmHg Ao max P.5 mmHg LV V1 VTI: 8.8 cm Ao mean P.5 mmHg OLIVA(I,D): 1.9 cm2 Ao V2 VTI: 16.4 cm OLIVA(V,D): 2.2 cm2 sev ratio: 0.54 OLIVA indexed to BSA (cm^2/m^2): 1.1 MV E max dakota: 79.7 cm/sec TR max dakota: 318.8 cm/sec MV A max dakota: 63.3 cm/sec TR max P.7 mmHg MV E/A: 1.3 PA V2 max: 68.3 cm/sec Med Peak E' [place]: 2.3 cm/sec PA V2 mean: 44.7 cm/sec E/E' med: 35.3 PA mean P.92 mmHg Lat Peak E' [place]: 3.4 cm/sec PA pr(Accel): 48.2 mmHg E/E' lat: 23.5 E/e' average: 29.4 MV dec time: 0.14 sec MVA(VTI): 2.0 cm2 MR ERO: 0.20 cm2 MV V2 mean: 57.7 cm/sec MR PISA: 2.4 cm2 MV mean P.5 mmHg MR flow rate: 89.0 cm3/sec MV V2 VTI: 16.3 cm MR PISA radius: 0.62 cm SV(LVOT): 31.9 ml Electronically signed by: Liliana Anna M.D. on Reading Physician:06/13/2024 04:52 PM Discharge Providers Provider Date of admission: 06/13/24 11:28 Discharge Date: 06/13/24 Discharge provider: Westley Barbosa MD Exam Vital Signs (past 8 hours): - 06/13/24 10:01 06/13/24 10:02 06/13/24 10:02 Temperature Pulse Rate 93 H 92 H Respiratory Rate 20 Blood Pressure 125/86 Pulse Oximetry 95 96 Oxygen Delivery Method Oximask Oxygen Flow Rate 2 06/13/24 10:15 06/13/24 10:15 06/13/24 10:30 Temperature Pulse Rate 95 H 92 H Respiratory Rate 22 20 Blood Pressure 126/84 Pulse Oximetry 92 99 Oxygen Delivery Method Oxygen Flow Rate 06/13/24 10:40 06/13/24 10:40 06/13/24 10:44 Temperature Pulse Rate 91 H 100 H Respiratory Rate 17 Blood Pressure 128/83 Pulse Oximetry 99 87 L Oxygen Delivery Method Oxygen Flow Rate 06/13/24 10:45 06/13/24 10:45 06/13/24 11:00 Temperature Pulse Rate 92 H 95 H Respiratory Rate 25 H 18 Blood Pressure 132/92 H Pulse Oximetry 96 98 Oxygen Delivery Method Oximask Oxygen Flow Rate 2 06/13/24 11:00 06/13/24 11:15 06/13/24 11:15 Temperature Pulse Rate 93 H Respiratory Rate 20 Blood Pressure 133/94 H 135/90 Pulse Oximetry 96 Oxygen Delivery Method Oxygen Flow Rate 06/13/24 11:30 06/13/24 11:30 06/13/24 11:45 Temperature Pulse Rate 90 92 H Respiratory Rate 20 17 Blood Pressure 122/87 Pulse Oximetry 94 94 Oxygen Delivery Method Oxygen Flow Rate 06/13/24 11:45 06/13/24 12:00 06/13/24 12:00 Temperature Pulse Rate 91 H Respiratory Rate 20 Blood Pressure 126/90 118/77 Pulse Oximetry 92 Oxygen Delivery Method Oxygen Flow Rate 06/13/24 12:15 06/13/24 12:15 06/13/24 12:30 Temperature Pulse Rate 92 H Respiratory Rate 18 Blood Pressure 128/88 133/91 H Pulse Oximetry 92 Oxygen Delivery Method Room Air Oxygen Flow Rate 06/13/24 12:30 06/13/24 12:45 06/13/24 12:45 Temperature Pulse Rate 94 H 94 H Respiratory Rate 14 17 Blood Pressure 134/95 H Pulse Oximetry 91 91 Oxygen Delivery Method Room Air Room Air Oxygen Flow Rate 06/13/24 13:26 06/13/24 13:30 06/13/24 17:30 Temperature 96.2 F L 97.1 F L Pulse Rate 87 55 L Respiratory Rate 16 16 Blood Pressure 127/86 118/76 Pulse Oximetry 96 100 Oxygen Delivery Method Room Air Oxygen Flow Rate 0 Oxygen Delivery Method Room Air Oxygen Flow Rate 0 Objective Labs 06/13/24 07:55 06/13/24 07:55 Labs: Laboratory Results - last 24 hr 06/13/24 06/13/24 06/13/24 07:55 10:05 10:58 WBC 6.5 RBC 4.63 Hgb 13.9 Hct 41.9 MCV 90.5 MCH 29.9 MCHC 33.1 RDW 14.6 Plt Count 191 Neut % (Auto) 63.6 Lymph % (Auto) 24.2 L Jack % (Auto) 10.1 Eos % (Auto) 1.5 L Baso % (Auto) 0.6 Neut # (Auto) 4100 Lymph # (Auto) 1600 Jack # (Auto) 700 Eos # (Auto) 100 Baso # (Auto) 0 Sodium 138 Potassium 5.0 Chloride 106 Carbon Dioxide 26 BUN 29 H Creatinine 1.23 Estimated GFR > 60 BUN/Creatinine Ratio 23.6 H Glucose 104 Lactate 1.1 Calcium 9.3 Total Bilirubin 0.8 AST 83 H ALT 101 H Alkaline Phosphatase 92 Total Creatine Kinase 92 Troponin I 0.085 H 0.080 H NT-Pro-B Natriuret Pep 24600 H Total Protein 6.6 Albumin 3.9 Globulin 2.7 Albumin/Globulin Ratio 1.4 Triglycerides Cholesterol LDL Cholesterol, Calc HDL Cholesterol Lipase 156 SARS-CoV-2 (PCR) Negative Influenza A (RT-PCR) Flu a negative Influenza B (RT-PCR) Flu b negative RSV (PCR) Negative 06/13/24 14:22 WBC RBC Hgb Hct MCV MCH MCHC RDW Plt Count Neut % (Auto) Lymph % (Auto) Jack % (Auto) Eos % (Auto) Baso % (Auto) Neut # (Auto) Lymph # (Auto) Jack # (Auto) Eos # (Auto) Baso # (Auto) Sodium Potassium Chloride Carbon Dioxide BUN Creatinine Estimated GFR BUN/Creatinine Ratio Glucose Lactate Calcium Total Bilirubin AST ALT Alkaline Phosphatase Total Creatine Kinase Troponin I NT-Pro-B Natriuret Pep Total Protein Albumin Globulin Albumin/Globulin Ratio Triglycerides 97 Cholesterol 186 LDL Cholesterol, Calc 118 H HDL Cholesterol 49 Lipase SARS-CoV-2 (PCR) Influenza A (RT-PCR) Influenza B (RT-PCR) RSV (PCR) [facility] Social History household members: none Smoking Status: Never smoker alcohol intake: former Discharge Plan Discharge Plan Patient Disposition: [facility] Other facility: [facility] ([place], [place]) Quality VTE Deep Vein Thrombosis/Pulmonary Embolism Present on Admission: No
[2024-06-13] MEDS: METOPROLOL IR 25 MG TABLET PO (22:00)
[2024-06-13] MEDS: SENNOSIDES 8.6 MG TABLET 17.2 MG PO (22:00)
[2024-06-14] VITALS (60 sets, daily range): BP systolic 69–103; BP diastolic 42–68; PULSE 59–90; RESP 10–51; TEMP 36.1–37.6; O2SAT 86–97
[2024-06-14] MEDS: FUROSEMIDE 40 MG/4 ML VIAL IV (01:30)
[2024-06-14] MEDS: LOSARTAN 25 MG TABLET PO (08:18)
[2024-06-14] MEDS: ASPIRIN EC 81 MG TABLET PO (08:18)
[2024-06-14] MEDS: METOPROLOL IR 25 MG TABLET PO (08:18)
[2024-06-14] MEDS: ENOXAPARIN 40 MG/0.4 ML SYRINGE SUBCUT (08:18)
[2024-06-14] MEDS: POTASSIUM CHLORIDE 20 MEQ TAB PO ×2 (08:18→17:22)
--- NOTE | 2024-06-14 10:15 | PM.DS.1 ---
History of Present Illness History of Present Illness Date Patient Seen: 06/14/24 Time Patient Seen: 10:15 Date of Onset of Symptoms: 06/12/24 Chief complaint: Dyspnea hypoxic respiratory failure CHF Narrative: Discharge diagnoses: Severe dilated cardiomyopathy with acute systolic congestive heart failure Chief complaint: Shortness of breath and dyspnea setting of acute hypoxic respiratory failure and new onset congestive heart failure History of present illness: 63-year-old male with no history of chronic heart or lung problems known, no history smoking, prior albuterol inhaler prescription, no chronic hypoxia, has one-week duration of cough that was initially dry, but last 3 days productive, did not see his sputum, does not taste like blood, swallows the sputum. Denies history of heart failure, swelling of the legs. Denies history of blood clots to legs or lungs, denies pain or swelling to legs. No known exposure to persons with recent upper respiratory infection cough symptoms. He has had seasonal flu shot, has had COVID vaccination including booster late last year. Findings in the emergency department significant for patient with dyspnea and hypoxia with minimal exertion desaturated to 80% Diminished breath sounds at lung bases Very impressive Cardiomegaly and ground-glass parenchymal lung changes on CT angio of the chest suggestive of pulmonary edema [place] [address]. Patient received a dose of Lasix in the emergency department and was referred for admission. Received a call from Dr. Liliana Anna impregnating helper at [facility] telephone [phone] Echocardiogram shows acute severe cardiomyopathy with severe dilation EF of 10-15%. Dr. Anna recommended step flight transfer to [facility] where patient could undergo a left and right heart catheterization. 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 No tobacco or alcohol use Physical exam: Elderly male but appearing quite muscular and fit lean HEENT with some poor dentition no signs of acute abscess in the jaw no cervical adenopathy Neck no thyromegaly no thyroid nodules no carotid bruits no JVD Heart sounds distant almost imperceptible Lung sounds distant faint bibasilar rales Abdomen no hepatomegaly no shifting dullness bowel sounds present scaphoid Lower extremities no edema Upper extremity heavily callused fingers and palms of the hands not quite manic and like but obviously 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 No pulmonary embolus. No thoracic aortic aneurysm. Cardiomegaly, no pericardial effusion. 2. Small bilateral pleural effusion and dependent atelectasis in posterior aspect of bilateral lung hsu. Hazy ground-glass opacities seen in bilateral lower lobes suggestive of mild pulmonary edema versus pneumonitis. No pneumothorax. 3. No mediastinal or hilar lymphadenopathy by size criteria. Assessment and plan: Acute hypoxic respiratory failure with dyspnea in the setting of findings of marked [place] [address] Emergent flight transfer to [facility] for left and right cardiac catheterization and possible LVAD per recommendation by Dr. Liliana Anna DVT prophylaxis: Patient is at low risk Full Code Blue Below is a copy and paste of the echocardiogram report: Interpretation Summary Normal sinus rhythm with wide QRS complexes. Severely dilated left ventricle with normal wall thickness. Severe cardiomyopathy. Ejection fraction is 10-15%. EPSS is 2.2 cm consistent with severe cardiomyopathy. Mild right ventricular enlargement and moderately reduced RV systolic function. Severe LA enlargement and moderate RA enlargement. Moderate central tricuspid regurgitation and mild-moderate central mitral regurgitation. Estimated PA systolic pressure is 43 mmHg assuming right atrial pressure of 3 mmHg. No significant valvular abnormalities. No prior echo available for comparison. Procedure: A two-dimensional transthoracic echocardiogram with color flow and Doppler was performed. The study quality was technically good. There is no prior echocardiogram noted for this patient. The heart rate ranged between 72- 93 bpm during the study. Left Ventricle: The left ventricle is severely dilated. The estimated left ventricular end diastolic volume is 250 ml. Left ventricular volume indexed to BSA of 139ml/m2. There is normal left ventricular wall thickness. The ejection fraction is estimated to be 10-15%. There is severe global hypokinesis of the left ventricle. Diastolic parameters suggest a pseudonormalization pattern, consistent with probable elevated filling pressures. Right Ventricle: The right ventricle is mildly dilated. Right ventricular systolic function is moderately reduced. Atria: The left atrium is severely dilated. The right atrium is mild to moderately dilated. There is no Doppler evidence for an interatrial shunt. Mitral Valve: The mitral valve leaflets appear mildly thickened, but open well. There is no mitral annular calcification. There is no mitral valve stenosis. There is moderate mitral regurgitation. Aortic Valve: The aortic valve is trileaflet. The aortic valve is slightly calcified. The aortic valve opens well. There is no aortic valve stenosis. There is trace aortic regurgitation. Tricuspid Valve: The tricuspid valve leaflets are thickened and/or calcified, but open well. There is moderate tricuspid regurgitation. The right ventricular systolic pressure is estimated to be at least 43 mmHg based on an estimated right atrial pressure of 3 mm Hg. Pulmonic Valve: The pulmonic valve leaflets are thin and pliable; valve motion is normal. There is mild to moderate pulmonic regurgitation. Great Vessels: The aortic root is normal size. The dimensions of the ascending aorta are normal. The IVC is of normal diameter and collapses greater than 50% with a sniff. This suggests a low right atrial pressure of 3 mm Hg. Pericardium/ Pleura There is a trivial pericardial effusion noted. There is no pleural effusion. MMode/2D Measurements & Calculations LVIDd: 6.3 cm LVOT diam: 2.1 cm LVIDs: 6.1 cm Ao root diam: 3.4 cm FS: 3.9 % asc Aorta Diam: 3.3 cm EPSS: 2.3 cm IVSd: 0.90 cm LVPWd: 0.94 cm LV hudson. diameter/BSA (cm/m^2): 3.5 LV sys. diameter/BSA (cm/m^2): 3.4 LA A2 area: 25.2 cm2 RA long axis: 4.9 cm LA A4 area: 23.3 cm2 RA area: 20.5 cm2 LA length (vol): 5.8 cm RA vol: 72.4 ml LA vol: 86.2 ml RA : 40.4 ml/m2 LA vol index: 48.1 ml/m2 IVC diam: 1.1 cm RVD1 (basal): 4.9 cm RVD2 (mid): 4.0 cm TAPSE: 1.1 cm Doppler Measurements & Calculations Ao V2 max: 105.8 cm/sec LVOT Max [place]: 63.5 cm/sec Ao V2 mean: 74.8 cm/sec LV V1 max P.6 mmHg Ao max P.5 mmHg LV V1 VTI: 8.8 cm Ao mean P.5 mmHg OLIVA(I,D): 1.9 cm2 Ao V2 VTI: 16.4 cm OLIVA(V,D): 2.2 cm2 sev ratio: 0.54 OLIVA indexed to BSA (cm^2/m^2): 1.1 MV E max [place]: 79.7 cm/sec TR max [place]: 318.8 cm/sec MV A max [place]: 63.3 cm/sec TR max P.7 mmHg MV E/A: 1.3 PA V2 max: 68.3 cm/sec Med Peak E' [place]: 2.3 cm/sec PA V2 mean: 44.7 cm/sec E/E' med: 35.3 PA mean P.92 mmHg Lat Peak E' [place]: 3.4 cm/sec PA pr(Accel): 48.2 mmHg E/E' lat: 23.5 E/e' average: 29.4 MV dec time: 0.14 sec MVA(VTI): 2.0 cm2 MR ERO: 0.20 cm2 MV V2 mean: 57.7 cm/sec MR PISA: 2.4 cm2 MV mean P.5 mmHg MR flow rate: 89.0 cm3/sec MV V2 VTI: 16.3 cm MR PISA radius: 0.62 cm SV(LVOT): 31.9 ml Electronically signed by: Liliana Anna M.D. on Reading Physician:06/13/2024 04:52 PM Discharge Providers Provider Date of admission: 06/13/24 11:28 Discharge Date: 06/13/24 Discharge provider: Westley Barbosa MD Exam Vital Signs (past 8 hours): - 06/13/2509:01 06/13/2509:02 06/13/2509:02 Temperature Pulse Rate 93 H 92 H Respiratory Rate 20 Blood Pressure 125/86 Pulse Oximetry 95 96 Oxygen Delivery Method Oximask Oxygen Flow Rate 2 06/13/2509:15 06/13/2509:15 06/13/2509:30 Temperature Pulse Rate 95 H 92 H Respiratory Rate 22 20 Blood Pressure 126/84 Pulse Oximetry 92 99 Oxygen Delivery Method Oxygen Flow Rate 06/13/2509:40 06/13/2509:40 06/13/2509:44 Temperature Pulse Rate 91 H 100 H Respiratory Rate 17 Blood Pressure 128/83 Pulse Oximetry 99 87 L Oxygen Delivery Method Oxygen Flow Rate 06/13/2509:45 06/13/2509:45 06/13/2510:00 Temperature Pulse Rate 92 H 95 H Respiratory Rate 25 H 18 Blood Pressure 132/92 H Pulse Oximetry 96 98 Oxygen Delivery Method Oximask Oxygen Flow Rate 2 06/13/2510:00 06/13/2510:15 06/13/2510:15 Temperature Pulse Rate 93 H Respiratory Rate 20 Blood Pressure 133/94 H 135/90 Pulse Oximetry 96 Oxygen Delivery Method Oxygen Flow Rate 06/13/2510:30 06/13/2510:30 06/13/2510:45 Temperature Pulse Rate 90 92 H Respiratory Rate 20 17 Blood Pressure 122/87 Pulse Oximetry 94 94 Oxygen Delivery Method Oxygen Flow Rate 06/13/2510:45 06/14/2511:00 06/14/2511:00 Temperature Pulse Rate 91 H Respiratory Rate 20 Blood Pressure 126/90 118/77 Pulse Oximetry 92 Oxygen Delivery Method Oxygen Flow Rate 06/14/2511:15 06/14/2511:15 06/14/2511:30 Temperature Pulse Rate 92 H Respiratory Rate 18 Blood Pressure 128/88 133/91 H Pulse Oximetry 92 Oxygen Delivery Method Room Air Oxygen Flow Rate 06/14/2511:30 06/14/2511:45 06/14/2511:45 Temperature Pulse Rate 94 H 94 H Respiratory Rate 14 17 Blood Pressure 134/95 H Pulse Oximetry 91 91 Oxygen Delivery Method Room Air Room Air Oxygen Flow Rate 06/13/2512:26 06/13/2512:30 06/13/2516:30 Temperature 96.2 F L 97.1 F L Pulse Rate 87 55 L Respiratory Rate 16 16 Blood Pressure 127/86 118/76 Pulse Oximetry 96 100 Oxygen Delivery Method Room Air Oxygen Flow Rate 0 Oxygen Delivery Method Room Air Oxygen Flow Rate 0 Objective Labs 06/13/24 07:55 06/13/24 07:55 Labs: Laboratory Results - last 24 hr 06/13/24 06/13/24 06/13/24 07:55 10:05 10:58 WBC 6.5 RBC 4.63 Hgb 13.9 Hct 41.9 MCV 90.5 MCH 29.9 MCHC 33.1 RDW 14.6 Plt Count 191 Neut % (Auto) 63.6 Lymph % (Auto) 24.2 L Mel[place] % (Auto) 10.1 Eos % (Auto) 1.5 L Baso % (Auto) 0.6 Neut # (Auto) 4100 Lymph # (Auto) 1600 [place] # (Auto) 700 Eos # (Auto) 100 Baso # (Auto) 0 Sodium 138 Potassium 5.0 Chloride 106 Carbon Dioxide 26 BUN 29 H Creatinine 1.23 Estimated GFR > 60 BUN/Creatinine Ratio 23.6 H Glucose 104 Lactate 1.1 Calcium 9.3 Total Bilirubin 0.8 AST 83 H ALT 101 H Alkaline Phosphatase 92 Total Creatine Kinase 92 Troponin I 0.085 H 0.080 H NT-Pro-B Natriuret Pep 55387 H Total Protein 6.6 Albumin 3.9 Globulin 2.7 Albumin/Globulin Ratio 1.4 Triglycerides Cholesterol LDL Cholesterol, Calc HDL Cholesterol Lipase 156 SARS-CoV-2 (PCR) Negative Influenza A (RT-PCR) Flu a negative Influenza B (RT-PCR) Flu b negative RSV (PCR) Negative 06/13/24 14:22 WBC RBC Hgb Hct MCV MCH MCHC RDW Plt Count Neut % (Auto) Lymph % (Auto) [place] % (Auto) Eos % (Auto) Baso % (Auto) Neut # (Auto) Lymph # (Auto) [place] # (Auto) Eos # (Auto) Baso # (Auto) Sodium Potassium Chloride Carbon Dioxide BUN Creatinine Estimated GFR BUN/Creatinine Ratio Glucose Lactate Calcium Total Bilirubin AST ALT Alkaline Phosphatase Total Creatine Kinase Troponin I NT-Pro-B Natriuret Pep Total Protein Albumin Globulin Albumin/Globulin Ratio Triglycerides 97 Cholesterol 186 LDL Cholesterol, Calc 118 H HDL Cholesterol 49 Lipase SARS-CoV-2 (PCR) Influenza A (RT-PCR) Influenza B (RT-PCR) RSV (PCR) [facility]LY [facility] Social History household members: none Smoking Status: Never smoker alcohol intake: former Discharge Plan Discharge Plan Patient Disposition: [facility] Other facility: [facility] VTE Deep Vein Thrombosis/Pulmonary Embolism Present on Admission: No Discharge Providers Provider Date of admission: 06/13/24 11:28 Discharge Date: 06/14/24 Discharge provider: Westley Barbosa MD Exam Vital Signs (past 8 hours): - 06/14/24 08:18 06/14/24 08:29 06/14/24 08:30 Temperature 99.6 F Pulse Rate 64 64 Respiratory Rate 16 Blood Pressure 97/68 97/68 Pulse Oximetry 95 Oxygen Delivery Method Nasal Cannula Oxygen Flow Rate 2 06/14/24 08:45 Temperature Pulse Rate Respiratory Rate Blood Pressure Pulse Oximetry 95 Oxygen Delivery Method Nasal Cannula Oxygen Flow Rate 2 Oxygen Delivery Method Nasal Cannula Oxygen Flow Rate 2 Objective Labs 06/13/24 07:55 06/13/24 07:55 Labs: Laboratory Results - last 24 hr 06/13/24 06/13/24 06/13/24 10:05 10:58 14:22 Lactate 1.1 Troponin I 0.080 H NT-Pro-B Natriuret Pep 50460 H Triglycerides 97 Cholesterol 186 LDL Cholesterol, Calc 118 H HDL Cholesterol 49 PFSH Social History household members: none Smoking Status: Never smoker alcohol intake: former Discharge Plan Discharge Plan Patient Disposition: [facility] Other facility: [facility] VTE Deep Vein Thrombosis/Pulmonary Embolism Present on Admission: No
[2024-06-14 11:06] LABS: Add Manual Diff / Slide Review NO; Basophils Absolute Auto 100 /uL (0-100); Eosinophils Absolute Auto 100 /uL (0-450); Eosinophils Percent Auto 1.4 % (2-4); Hemoglobin 15.4 g/dL (13.5-17.5); Lymphocytes Absolute Auto 1700 /uL (1100-4500); Lymphocytes Percent Auto 22.6 % (25-40); Mean Corpuscular HGB Conc 33.6 % (30-36); Mean Corpuscular Hemoglobin 30.2 PG (26-34); Monocytes Absolute Auto 600 /uL (0-900); Monocytes Percent Auto 8.4 % (3-14); Neutrophils Absolute Auto 4900 /uL (1500-7000); Neutrophils Percent Auto 66.6 % (50-75); Platelet Count 217 X10^3/uL (150-400); Red Blood Cell Count 5.11 X10^6/uL (4.5-5.9); Red Cell Distribution Width 14.1 % (11.6-14.8); White Blood Cell Count 7.4 X10^3/uL (4.5-11.0)
[2024-06-14 11:52] LABS: Alanine Aminotransferase 88 IU/L (<50); Albumin Globulin Ratio 1.4 (1.0-2.8); Alkaline Phosphatase 94 U/L (38-126); Aspartate Aminotransferase 52 IU/L (17-59); BUN Creatinine Ratio 21.3 (6-22); Blood Urea Nitrogen 35 mg/dL (9-20); Calcium 9.5 mg/dL (8.4-10.2); Carbon Dioxide 25 mmol/L (22-32); Chloride 102 mmol/L (98-107); Estimated Glomerular Filt Rate 46 mL/min (>60); Globulin 2.9 g/dL (1.7-4.1); Glucose 109 mg/dL (80-110); HEMOLYSIS 19 (0-50); Potassium 4.7 mmol/L (3.4-5.1); Sodium 138 mmol/L (137-145); Total Protein 6.9 g/dL (6.3-8.2)
[2024-06-14] MEDS: SODIUM CHLORIDE 0.9% 500 ML 1000 ML IV ×2 (12:05→13:06)
--- NOTE | 2024-06-14 12:19 | PC.NURSE ---
Pt's BP was 69/38, then 81/48. Pt denied feeling lightheaded or short of breath. Notified Dr. Barbosa, and he ordered a 500 ml bolus. Pt denied any needs at this time, he is resting in bed with call light within reach.
--- NOTE | 2024-06-14 13:42 | PC.NURSE ---
Addendum entered by Deysi Braun R.N. 06/14/24 17:27: [address] Hilton, dobutamine halfed from 20mcg/kg/min to 10mcg/kg/min, norepinephrine started in 18g u/s guided PIV to left upper arm. Pt A&Ox4, awake, eating dinner, denies chest pain, denies SOB, denies dizziness/lightheadedness. Care ongoing. Addendum entered by Deysi Braun R.N. 06/14/24 16:17: Pt remains hypotensive after initiation of Dobutamine. Dobutamine maxxed at 20mcg/kg/min per hospital protocol, BP 70s/50s MAPS 50s. Provider notified, at bedside. Provider to consult Teleintensivist/eICU provider. Care ongoing. Addendum entered by Deysi Braun R.N. 06/14/24 14:28: Pt educated on not getting out of bed due to hypotension and potential strain on his heart. Pt stated, I'll get up if I want to. Re-educated on risks of straining his heart. Pt in bed, bed alarm active. Care ongoing. Original Note: TRANSFER NOTE: pt transferred to ICU rm 231 from ACU rm 222 at approximately 1250. Telemetry to bedside monitor NSR BBB. Pt A&Ox4, fatigued. NS 500mL Bolus (2 of 2) started, see MAR. BP as charted, MAPs >65 during bolus. BP 92/51 MAP 65 at 1340 at bolus completion. Family at bedside, expressing concerns on transfering to higher level of care and delay of this action. Nurse coordinator made aware. Care ongoing.
[2024-06-14] MEDS: DOBUTAMINE 250 MG IN D5W 250 MG/250 ML IV.SOLN 9.9 MG IV (14:40)
[2024-06-14] MEDS: SODIUM CHLORIDE 0.9% 1,000 ML 250 ML IV ×2 (14:40→19:03)
--- NOTE | 2024-06-14 15:33 | EKG_ITS ---
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
[2024-06-14] MEDS: NOREPINEPHRINE BITARTRATE/D5W 4 MG/250 ML PLAST..BAG 24.75 MG IV (17:21)
--- NOTE | 2024-06-14 17:46 | P.TELICUCN_ITS ---
History of Present Illness Consult details IF CAMERA ACTIVATED, patient seen via real-time interactive audiovisual communication: Camera activated Date Patient Seen: 06/14/24 Chief complaint: Dyspnea hypoxic respiratory failure CHF Reason for consult: Cardiogenic shock requiring pressors/inotrops Consent obtained for tele-water supervisor care: Yes Patient Location: ICU Provider location (State): [place] Other participants/roles: Bedside RN Narrative: The history was obtained from reviewing EMR and from my discussion with bedside team.? This is a 63 years old male with no known cardiac or pulmonary medical problems, not on home O2 at baseline, presented with 1 week history of shortness of breath and cough which was initially dry but then became productive over the last 3 days.? He is reportedly up-to-date with flu and COVID vaccinations including booster.? On arrival to ER, he was found to be in severe respiratory distress with hypoxia, SpO2 in 80s with diminished breath sounds at bilateral lung bases.? Further workup revealed large cardiomegaly and groundglass parenchymal lung opacities on CTA of chest suggestive of pulmonary edema and CHF.? His BNP was elevated at 13,000.? He was started on diuretics and was admitted to hospitalist service.? CTA of chest ruled out acute PE and demonstrated small bilateral pleural effusions.? The patient had 2D echocardiogram done in the ED that showed severe dilated the patient was recommended to be transferred to cardiomyopathy with LVEF 10 to 15%.? Another hospital for higher level of care and to undergo a left and right heart catheterization.? Per bedside team, the patient has already been accepted at a facility and awaiting for a bed.? However, while in the ED waiting for a bed, the patient became hypotensive and required to be started on dobutamine drip as well as norepinephrine gtt.? He is now upgraded to ICU and critical care consult was requested to co-manage. [facility], [facility] Social History household members: none Smoking Status: Never smoker alcohol intake: former Current Medications Current Medications Medications: Home Medications No Known Home Medications 06/13/24 [History Confirmed 06/13/24] Visit Medications (administered) Generic Name Dose Route Start Last Admin Trade Name Freq PRN Reason Stop Dose Admin Aspirin 81 mg 06/14/24 09:00 06/14/24 08:18 Aspirin Ec 81 Mg Tablet PO 81 mg DAILY MARÍA Administration Enoxaparin Sodium 40 mg 06/13/24 13:00 06/14/24 08:18 Enoxaparin 40 Mg/0.4 Ml Syringe SUBCUT 40 mg DAILY MARÍA Administration Dobutamine HCl/Dextrose 250 mg in 250 mls @ 9.9 mls/hr 06/14/24 14:30 06/14/24 17:27 Dobutamine 250 Mg In D5w IV 10 mcg/kg/min TITRATE MARÍA 39.6 mls/hr Titration Protocol 2.5 MCG/KG/MIN Sodium Chloride 1,000 mls @ 250 mls/hr 06/14/24 14:33 06/14/24 14:40 Normal Saline 0.9% IV 250 mls/hr CONT MARÍA Administration NOREPINEPHRINE BITARTRATE/D5W 4 mg in 250 mls @ 24.75 mls/hr 06/14/24 17:11 06/14/24 17:21 Levophed IV 0.1 mcg/kg/min TITRATE MARÍA 24.75 mls/hr Administration Protocol 0.1 MCG/KG/MIN Potassium Chloride 20 meq 06/13/24 17:00 06/14/24 17:22 Potassium Chloride 20 Meq Tab PO 20 meq BIDWM MARÍA Administration Sennosides 17.2 mg 06/13/24 21:00 06/13/24 22:00 Sennosides 8.6 Mg Tablet PO 17.2 mg BEDTIME MARÍA Administration Exam Vital Signs (past 8 hours): - 06/14/24 12:50 06/14/24 12:55 06/14/24 13:00 Temperature Pulse Rate 61 60 Respiratory Rate 28 H 16 Blood Pressure 81/48 L Pulse Oximetry 92 94 Oxygen Flow Rate 06/14/24 13:01 06/14/24 13:01 06/14/24 13:02 Temperature Pulse Rate 63 59 L Respiratory Rate 22 Blood Pressure 87/52 L 87/52 L Pulse Oximetry 92 93 Oxygen Flow Rate 2 06/14/24 13:16 06/14/24 13:16 06/14/24 13:30 Temperature Pulse Rate 65 62 Respiratory Rate 17 21 Blood Pressure 97/57 L Pulse Oximetry 92 93 Oxygen Flow Rate 06/14/24 13:30 06/14/24 13:35 06/14/24 13:41 Temperature Pulse Rate 62 Respiratory Rate Blood Pressure 97/53 L 97/53 L 92/51 L Pulse Oximetry Oxygen Flow Rate 06/14/24 13:41 06/14/24 13:45 06/14/24 13:45 Temperature Pulse Rate 61 62 Respiratory Rate 19 21 Blood Pressure 92/50 L Pulse Oximetry 92 91 Oxygen Flow Rate 06/14/24 14:00 06/14/24 14:01 06/14/24 14:01 Temperature Pulse Rate 62 63 Respiratory Rate 23 27 H Blood Pressure 92/52 L Pulse Oximetry 92 89 L Oxygen Flow Rate 06/14/24 14:15 06/14/24 14:15 06/14/24 14:30 Temperature Pulse Rate 65 Respiratory Rate 26 H Blood Pressure 81/48 L 95/56 L Pulse Oximetry 94 Oxygen Flow Rate 06/14/24 14:30 06/14/24 14:45 06/14/24 14:45 Temperature Pulse Rate 60 64 Respiratory Rate 28 H 18 Blood Pressure 94/55 L Pulse Oximetry 93 91 Oxygen Flow Rate 06/14/24 15:00 06/14/24 15:00 06/14/24 15:15 Temperature Pulse Rate 63 59 L Respiratory Rate 32 H 41 H Blood Pressure 95/52 L Pulse Oximetry 94 96 Oxygen Flow Rate 06/14/24 15:15 06/14/24 15:30 06/14/24 15:30 Temperature Pulse Rate 61 Respiratory Rate 32 H Blood Pressure 93/56 L 75/42 L Pulse Oximetry 92 Oxygen Flow Rate 06/14/24 15:31 06/14/24 15:31 06/14/24 15:36 Temperature Pulse Rate 65 Respiratory Rate 35 H Blood Pressure 81/51 L 87/53 L Pulse Oximetry 92 Oxygen Flow Rate 06/14/24 15:36 06/14/24 15:41 06/14/24 15:41 Temperature Pulse Rate 68 75 Respiratory Rate 19 22 Blood Pressure 85/52 L Pulse Oximetry 96 96 Oxygen Flow Rate 06/14/24 15:45 06/14/24 15:46 06/14/24 15:46 Temperature Pulse Rate 77 77 Respiratory Rate 23 20 Blood Pressure 85/53 L Pulse Oximetry 96 96 Oxygen Flow Rate 06/14/24 15:48 06/14/24 15:48 06/14/24 16:00 Temperature Pulse Rate 79 87 Respiratory Rate 23 31 H Blood Pressure 81/53 L Pulse Oximetry 95 95 Oxygen Flow Rate 06/14/24 16:00 06/14/24 16:03 06/14/24 16:03 Temperature Pulse Rate 80 Respiratory Rate 35 H Blood Pressure 78/52 L 69/46 L Pulse Oximetry 94 Oxygen Flow Rate 06/14/24 16:04 06/14/24 16:04 06/14/24 16:07 Temperature Pulse Rate 80 78 Respiratory Rate 18 21 Blood Pressure 70/45 L Pulse Oximetry 94 95 Oxygen Flow Rate 06/14/24 16:07 06/14/24 16:15 06/14/24 16:30 Temperature Pulse Rate 83 80 Respiratory Rate 32 H 51 H Blood Pressure 77/50 L Pulse Oximetry 94 94 Oxygen Flow Rate 06/14/24 16:30 06/14/24 16:45 06/14/24 16:50 Temperature 97.0 F L Pulse Rate 80 Respiratory Rate 40 H Blood Pressure 78/48 L Pulse Oximetry 93 Oxygen Flow Rate 06/14/24 17:00 06/14/24 17:00 Temperature Pulse Rate 79 Respiratory Rate 34 H Blood Pressure 73/46 L Pulse Oximetry 94 Oxygen Flow Rate Oxygen Delivery Method Nasal Cannula Oxygen Flow Rate 2 Narrative Exam Narrative: Awake, alert, oriented x 3, sitting up in bed comfortably, texting/talking on the cell phone, in no acute distress. Objective Labs 06/14/24 10:50 06/14/24 10:50 Labs: Laboratory Results - last 24 hr 06/14/24 10:50 WBC 7.4 RBC 5.11 Hgb 15.4 Hct 46.0 MCV 90.0 MCH 30.2 MCHC 33.6 RDW 14.1 Plt Count 217 Neut % (Auto) 66.6 Lymph % (Auto) 22.6 L Carson % (Auto) 8.4 Eos % (Auto) 1.4 L Baso % (Auto) 1.0 Neut # (Auto) 4900 Lymph # (Auto) 1700 Carson # (Auto) 600 Eos # (Auto) 100 Baso # (Auto) 100 Sodium 138 Potassium 4.7 Chloride 102 Carbon Dioxide 25 BUN 35 H Creatinine 1.64 H Estimated GFR 46 L BUN/Creatinine Ratio 21.3 Glucose 109 Calcium 9.5 Total Bilirubin 1.0 AST 52 ALT 88 H Alkaline Phosphatase 94 Total Protein 6.9 Albumin 4.0 Globulin 2.9 Albumin/Globulin Ratio 1.4 Assessment & Plan Assessment & Plan narrative: ASSESSMENT # Severe dilated cardiomyopathy, (unknown if acute or chronic, ischemic or nonischemic) with LVEF 10 to 15% # Cardiogenic shock PLAN: - Transferred to ICU due to need for pressors/inotropes. - Currently on dobutamine gtt. at 20 mcg/kg/min, but became more hypotensive.? Agree with adding norepinephrine gtt. with goal to maintain MAP >65.? Will add epi and slowly go down on dobutamine gtt. if patient becomes more hypotensive. - Monitor markers of tissue perfusion (lactate clearance, base deficit, ScvO2, mental status, urine out). - Per bedside team, he has been accepted at outside facility and awaiting for a bed.? He will need right and left heart catheterization. - Agree with diuresis but if becomes more hypotensive, may need to hold diuretics for now. # FEN: Heart healthy diet # Glucose: fairly controlled. C/w Accu checks Q6 hours and SSI. BG goal 140-180 # Prophylaxis: Lovenox subcu for DVT prophylaxis, no need for stress ulcer prophylaxis # Lines/tubes: PIV # CODE STATUS: Full code # Disposition: Remains in ICU Above plan was discussed with rounding team including hospitalist, bedside RN, respiratory therapist, dietitian and pharmacist during tele-ICU multidisciplinary rounds this morning.? We will continue to follow.? Please call us if any additional questions. Time-Based Coding :: [TOTAL MINUTES] spent with patient and on the chart (including review of chart, obtaining history, exam, reviewing outside data, placing orders, documenting exam and treatment plan, and counseling patient) on [DATE].
[2024-06-14 18:02] LABS: BUN Creatinine Ratio 24.7 (6-22); Blood Urea Nitrogen 37 mg/dL (9-20); Calcium 8.2 mg/dL (8.4-10.2); Carbon Dioxide 23 mmol/L (22-32); Chloride 106 mmol/L (98-107); Estimated Glomerular Filt Rate 51 mL/min (>60); Glucose 102 mg/dL (80-110); HEMOLYSIS 18 (0-50); Potassium 4.3 mmol/L (3.4-5.1); Sodium 136 mmol/L (137-145)
[2024-06-14] MEDS: DOBUTAMINE 250 MG IN D5W 250 MG/250 ML IV.SOLN 39.6 MG IV (19:20)
--- NOTE | 2024-06-14 22:53 | PC.NURSE ---
Tobias FINNEY given report @2200. Report to the recieving nurse, Mitali, at [facility] was given @2236. Tobias FINNEY departed [facility] @9162. Wallet and cellphone accompanied pt, remaining pt belongings were taken home by family, no medications to render. R wrist PIV is SL, CARMEN PIV infusing the following gtts below. Drips Infusing at Handoff -Dobutamine @10 mcg/kg/min -Norepinephrine @0.14 mcg/kg/min -NS 0.9% @250 mL/hr VS BP: 99/54 (70) HR: 83 RR: 24 SpO2: 96% on 4L via NC
== END 2024-06-14 22:45 | disposition short-term general hospital (02) | DRG 189 ==
LOC: ED 11:03 → AC 11:29 → ICU 06-14 13:24
PROVIDERS: Admitting Provider Internal Medicine; Emergency Provider Emergency Medicine; Family Provider Family Medicine; Referring Provider Emergency Medicine; Visit Provider Internal Medicine
DX: J96.01 Acute respiratory failure with hypoxia (principal); I50.21 Acute systolic (congestive) heart failure; R57.0 Cardiogenic shock; I42.0 Dilated cardiomyopathy; R05.9 Cough, unspecified
CPT/HCPCS: 0241U; 36415; 71045; 71275; 80048; 80053; 80061; 82550; 83605; 83690; 83880; 84484; 85025; 87040; 93005; 93306; 94640; 96374; 99284; 99291; J1650; J1940; Q9967